=== PATIENT | female | born 1955 | race Caucasian/White ===

== ENCOUNTER 2020-10-07 09:55 | Outpatient (REF) | payer MEDICARE, MEDICAID, SELFPAY ==
[2020-10-12 23:02] LABS: HPV mRNA E6/E7 rflx Not Detected (Not Detected)
== END 2020-10-07 09:56 | disposition home or self-care (01) ==
LOC: HO.LAB 09:55
PROVIDERS: PCP Internal Medicine; Visit Provider Obstetrics & Gynecology
DX: Z01.419 Encounter for gynecological examination (general) (routine) without abnormal findings (principal)
CPT/HCPCS: 36415; 87624; 88141; 88142

== ENCOUNTER 2020-12-13 11:48 | Outpatient (REF) | payer MEDICARE, MEDICAID, SELFPAY ==
--- NOTE | ~2020-12-13 | MM_ITS ---
EXAMINATION: BONE DENSITOMETRY CLINICAL INDICATION: Asymptomatic menopausal state. COMPARISON: This is the patient's baseline examination. TECHNIQUE: Using a [employer] DXA System (software version: 13.1) manufactured by [employer], dual-energy x-ray absorptiometry was performed of the lumbar spine and left hip. The images are of good technical quality. Summary results are attached. FINDINGS: AP SPINE L1-L2 (excluding L3 and L4): The data of L1-L4 has been changed to exclude the L3 and L4 vertebral bodies, because degenerative sclerosis at these levels may cause overestimation of lumbar spine density. BMD 1.186 g/cm2, Z-score 2.1, T-score 0.2, normal. LEFT FEMUR, NECK: BMD 0.670 g/cm2, Z-score -0.9, T-score -2.6, osteoporosis. LEFT FEMUR, TOTAL: BMD 0.705 g/cm2, Z-score -0.9, T-score -2.4, osteopenia. IDENTIFIED RISK FACTORS: Renal disease. Height loss. Anticonvulsant. Menopause. HISTORY OF FRACTURE: None listed. MEDICATIONS: Calcium supplement and/or multivitamin. Vitamin D. MM/XR DEXA axial skeleton IMPRESSION: 1. DIAGNOSIS: Osteoporosis based on the lowest T-score value of -2.6 in the femoral neck applying World Health Organization criteria. 2. 10-YEAR FRACTURE RISK PREDICTION, FRAX: Major osteoporotic fracture (clinical spine, forearm, hip or shoulder) 7.7%. Hip fracture 1.9%. 3. Treatment Recommendations: NOF guidelines recommend consideration for treatment in postmenopausal women and men age 50 and older presenting with the following: -A hip or vertebral (clinical or morphometric) fracture. -T-score less than or equal to -2.5 at the femoral neck or spine after appropriate evaluation to exclude secondary causes. -Low bone mass at the hip or spine and a 10-year fracture probability by FRAX of greater than or equal to 3% for hip fracture or greater than or equal to 20% for major osteoporotic fracture based on the [place] adapted WHO algorithm. 4. Other Recommendations: All treatment decisions require clinical judgment and consideration of individual patient factors, including patient preferences, comorbidities, previous drug use, risk factors not captured in the FRAX model (e.g. frailty, falls, vitamin D deficiency, increased bone turnover, interval significant decline in bone density) and possible under or overestimation of fracture risk by FRAX. Additional medical evaluation for secondary cause of low bone mineral density may be appropriate. FUTURE SCAN RECOMMENDATION: People with diagnosed cases of osteoporosis or at high risk for fracture should have regular bone mineral density tests. For patients eligible for Medicare, routine testing is allowed once every 2 years. The testing frequency can be increased to one year for patients who have rapidly progressing disease, those who are receiving or discontinuing medical therapy to restore bone mass, or have additional risk factors.
--- NOTE | ~2020-12-13 | MM_ITS ---
EXAMINATION: MM SCREENING DIGITAL BREAST TOMOSYNTHESIS, BILATERAL CLINICAL INFORMATION: Screening. Asymptomatic. The lifetime risk of breast cancer based on the Tyrer-Cuzick Model is 3%. COMPARISON: Mammography: 11/11/2018, 10/24/2016, 10/03/2015 TECHNIQUE: Digital breast tomosynthesis is performed in both the craniocaudal and mediolateral oblique views along with computer-aided detection (CAD). Synthesized 2D images are generated from the tomosynthesis. FINDINGS: There are scattered areas of fibroglandular density (ACR BI-RADS breast composition Category b). There are no significant masses, abnormal calcifications, or other abnormalities. The axilla and skin contours are unremarkable. There are no significant changes from prior studies. MM/MM tomosynthesis screening BI IMPRESSION: No mammographic evidence of malignancy. ASSESSMENT: BI-RADS 1: Negative RECOMMENDATION: Routine annual mammography screening. This patient's information was entered into a reminder system with a target due date for their next mammogram.
== END 2020-12-13 11:49 | disposition home or self-care (01) ==
LOC: HO.MAMMO 11:48
PROVIDERS: Visit Provider Obstetrics & Gynecology
DX: Z12.31 Encounter for screening mammogram for malignant neoplasm of breast (principal); Z13.820 Encounter for screening for osteoporosis; M81.0 Age-related osteoporosis without current pathological fracture; Z78.0 Asymptomatic menopausal state; Z79.899 Other long term (current) drug therapy
CPT/HCPCS: 77063; 77067; 77080

== ENCOUNTER → 2020-12-22 11:06 | Outpatient (BNVA) | payer MEDICARE, MEDICAID, SELFPAY | PROVIDERS: PCP Internal Medicine; Visit Provider Obstetrics & Gynecology | DX: M81.0 Age-related osteoporosis without current pathological fracture (principal) | CPT/HCPCS: Q3014 ==

== ENCOUNTER 2021-03-16 10:16 | Outpatient (REF) | payer MEDICARE, MEDICAID, SELFPAY ==
[2021-03-16 10:58] LABS: MANUAL DIFF FLAG NO
[2021-03-16 11:06] LABS: Basophils Percent Auto 0.7 % (0-2); Eosinophils Absolute Auto 0.2 X10*3/uL (0.0-0.4); Eosinophils Percent Auto 3.3 % (0-4); Hematocrit 36.1 % (37-47); Hemoglobin 11.6 g/dl (12.0-16.0); Imm Gran Abs Auto 0.01 X10*3/uL (0.00-0.03); Imm Gran Pct Auto 0.2 % (0.0-0.4); Lymphocytes Absolute Auto 1.7 X10*3/uL (1.2-4.9); Lymphocytes Percent Auto 30.9 % (20-40); Mean Corpuscular HGB Conc 32.1 g/dl (31.0-35.0); Mean Corpuscular Hemoglobin 28.2 pg (27.0-33.0); Mean Corpuscular Volume 87.8 fL (80-98); Mean Platelet Volume 11.1 fL (9.4-12.3); Monocytes Absolute Auto 0.3 X10*3/uL (0.1-1.2); Monocytes Percent Auto 5.9 % (2-11); Neutrophils Absolute Auto 3.2 X10*3/uL (2.0-8.3); Platelet Count 184 X10*3/uL (160-400); Red Blood Count 4.11 X10*6/uL (4.20-5.50); Red Cell Distribution Width 14.1 % (11.0-16.0); White Blood Count 5.5 X10*3/uL (4.8-10.8)
[2021-03-16 11:38] LABS: Albumin Level 3.9 g/dL (3.5-5.0); Anion Gap 15 (12-20); Blood Urea Nitrogen 19 mg/dL (9-16); Calcium 9.5 mg/dL (8.4-10.2); Carbon Dioxide 23 mmol/L (22-29); Chloride 105 mmol/L (96-108); Estimated Glomerular Filt Rate 40; Magnesium 1.6 mg/dL (1.6-2.6); Phosphorus 4.4 mg/dL (2.7-4.5); Potassium 4.6 mmol/L (3.3-5.1); Sodium 138 mmol/L (135-145)
[2021-03-17 19:32] LABS: Calcium (PTHI) 9.5 mg/dL (8.6-10.4); PTHI 43 pg/mL (14-64)
== END 2021-03-16 10:17 | disposition home or self-care (01) ==
LOC: HO.LAB 10:16
PROVIDERS: Visit Provider Internal Medicine Nephrology
DX: E11.21 Type 2 diabetes mellitus with diabetic nephropathy (principal); E11.22 Type 2 diabetes mellitus with diabetic chronic kidney disease; N18.31 Chronic kidney disease, stage 3a; R80.1 Persistent proteinuria, unspecified
CPT/HCPCS: 36415; 80051; 82040; 82310; 82565; 83735; 83970; 84100; 84520; 85025

== ENCOUNTER 2021-03-28 11:15 | Outpatient (REF) | payer MEDICARE, MEDICAID, SELFPAY | END 2021-03-28 11:16 | disposition home or self-care (01) | LOC: HO.LAB 11:15 | PROVIDERS: Visit Provider Obstetrics & Gynecology | DX: R87.612 Low grade squamous intraepithelial lesion on cytologic smear of cervix (LGSIL) (principal) | CPT/HCPCS: 57456; 88305 ==

== ENCOUNTER → 2021-06-13 09:03 | Outpatient (BNVA) | payer MEDICARE, MEDICAID, SELFPAY | PROVIDERS: Visit Provider Obstetrics & Gynecology | DX: N87.0 Mild cervical dysplasia (principal) | CPT/HCPCS: 99212 ==

== ENCOUNTER 2022-03-01 09:09 | Outpatient (REF) | payer MEDICARE, MEDICAID, SELFPAY ==
[2022-03-01 09:40] LABS: MANUAL DIFF FLAG NO
[2022-03-01 10:39] LABS: Basophils Percent Auto 0.7 % (0-2); Eosinophils Absolute Auto 0.2 X10*3/uL (0.0-0.4); Eosinophils Percent Auto 2.5 % (0-4); Hematocrit 38.7 % (37.0-47.0); Hemoglobin 12.7 g/dl (12.0-16.0); Imm Gran Abs Auto 0.02 X10*3/uL (0.00-0.03); Imm Gran Pct Auto 0.3 % (0.0-0.4); Lymphocytes Absolute Auto 1.6 X10*3/uL (1.2-4.9); Lymphocytes Percent Auto 27.5 % (20-40); Mean Corpuscular HGB Conc 32.8 g/dl (31.0-35.0); Mean Corpuscular Hemoglobin 28.2 pg (27.0-33.0); Monocytes Absolute Auto 0.4 X10*3/uL (0.1-1.2); Monocytes Percent Auto 6.4 % (2-11); Neutrophils Absolute Auto 3.7 x10*3/uL (2.0-8.3); Neutrophils Percent Auto 62.6 % (45-73); Platelet Count 194 X10*3/uL (160-400); Red Cell Distribution Width 13.8 % (11.0-16.0)
[2022-03-01 10:52] LABS: Appearance Urine CLEAR; Color Urine STRAW; Glucose Urine UA >=1000 MG/DL (NEG); Leukocyte Esterase Urine NEG (NEG); Nitrite Urine NEG (NEG); Specific Gravity - Urine <= 1.005 (1.005-1.025); Urine Blood NEG (NEG); Urine Ketones NEG (NEG); Urine Protein NEG (NEG-TRACE)
[2022-03-01 10:59] LABS: Squamous Epithelial Cell Urine 1+ /LPF
[2022-03-01 11:00] LABS: RBC Urine 0 /HPF (0); WBC Urine 0-2 /HPF (0-4)
[2022-03-01 11:15] LABS: Creatinine Urine 32.63 mg/dL; Total Protein Urine Random < 7 mg/dL (<12)
[2022-03-01 11:33] LABS: Vitamin D 25-OH Total 32.5 ng/mL (>30)
[2022-03-01 12:13] LABS: Albumin Level 3.8 g/dL (3.5-5.0); Anion Gap 18 (12-20); Blood Urea Nitrogen 25 mg/dL (9-16); Calcium 9.5 mg/dL (8.4-10.2); Carbon Dioxide 25 mmol/L (22-29); Chloride 98 mmol/L (96-108); Estimated Glomerular Filt Rate 24; Magnesium 1.9 mg/dL (1.6-2.6); Phosphorus 5.5 mg/dL (2.7-4.5); Potassium 5.3 mmol/L (3.3-5.1); Sodium 136 mmol/L (135-145)
[2022-03-02 12:27] LABS: Calcium (PTHI) 9.8 mg/dL (8.6-10.4); PTHI 107 pg/mL (16-77)
== END 2022-03-01 09:10 | disposition home or self-care (01) ==
LOC: HO.LAB 09:09
PROVIDERS: Visit Provider Internal Medicine Nephrology
DX: I12.9 Hypertensive chronic kidney disease with stage 1 through stage 4 chronic kidney disease, or unspecified chronic kidney disease (principal); N18.32 Chronic kidney disease, stage 3b; E11.22 Type 2 diabetes mellitus with diabetic chronic kidney disease; E11.21 Type 2 diabetes mellitus with diabetic nephropathy; R80.1 Persistent proteinuria, unspecified
CPT/HCPCS: 36415; 80051; 81001; 82040; 82043; 82306; 82310; 82565; 83735; 83970; 84100; 84156; 84520; 85025; 87086

== ENCOUNTER 2022-11-01 13:30 | Outpatient (REF) | payer MEDICARE, MEDICAID, SELFPAY ==
[2022-11-05 22:44] LABS: HPV mRNA E6/E7 rflx Not Detected (Not Detected)
== END 2022-11-01 13:31 | disposition home or self-care (01) ==
LOC: HO.LNP 13:30
PROVIDERS: PCP Internal Medicine; Visit Provider Obstetrics & Gynecology
DX: Z01.419 Encounter for gynecological examination (general) (routine) without abnormal findings (principal); N87.0 Mild cervical dysplasia; Z11.51 Encounter for screening for human papillomavirus (HPV)
CPT/HCPCS: 87624; 88142

== ENCOUNTER 2022-12-18 10:59 | Outpatient (REF) | payer MEDICARE, MEDICAID, SELFPAY ==
--- NOTE | ~2022-12-18 | MM_ITS ---
EXAMINATION: BONE DENSITOMETRY CLINICAL INDICATION: Asymptomatic menopausal state. COMPARISON: Baseline BD dated 12/13/2020. TECHNIQUE: Using a [employer] DXA System (software version: 13.1) manufactured by [employer], dual-energy x-ray absorptiometry was performed of the lumbar spine and left hip. The images are of good technical quality. Summary results are attached. FINDINGS: AP SPINE L1-L2 (excluding L3 and L4): The data of L1-L4 has been changed to exclude the L3 and L4 vertebral bodies, because degenerative changes at these levels may cause overestimation of lumbar spine density. Current: BMD 1.164 g/cm2, Z-score 1.9, T-score 0.0, normal, 1.9% decrease from baseline (<5% change is not significant). Baseline: BMD 1.186 g/cm2. LEFT FEMUR, NECK: Current: BMD 0.610 g/cm2, Z-score -1.3, T-score -3.1, osteoporosis. Baseline: BMD 0.670 g/cm2. LEFT FEMUR, TOTAL: Current: BMD 0.710 g/cm2, Z-score -0.8, T-score -2.4, osteopenia, 0.7% increase from baseline (<5% change is not significant). Baseline: BMD 0.705 g/cm2. IDENTIFIED RISK FACTORS: Rheumatoid arthritis. Recurrent falls. Secondary osteoporosis (type 1 diabetes). Menopause. HISTORY OF FRACTURE: None listed. MEDICATIONS: Calcium supplement and/or multivitamin. Vitamin D. MM/XR DEXA axial skeleton IMPRESSION: 1. DIAGNOSIS: Osteoporosis based on the lowest T-score value of -3.1 in the femoral neck applying World Health Organization criteria. 2. 10-YEAR FRACTURE RISK PREDICTION, FRAX: According to the guidelines, FRAX calculation should only be performed on patients in the osteopenia bone density category.?Therefore, FRAX was not performed on this patient.? 3. Treatment Recommendations: NOF guidelines recommend consideration for treatment in postmenopausal women and men age 50 and older presenting with the following: -A hip or vertebral (clinical or morphometric) fracture. -T-score less than or equal to -2.5 at the femoral neck or spine after appropriate evaluation to exclude secondary causes. -Low bone mass at the hip or spine and a 10-year fracture probability by FRAX of greater than or equal to 3% for hip fracture or greater than or equal to 20% for major osteoporotic fracture based on the [place] adapted WHO algorithm. 4. Other Recommendations: All treatment decisions require clinical judgment and consideration of individual patient factors, including patient preferences, comorbidities, previous drug use, risk factors not captured in the FRAX model (e.g. frailty, falls, vitamin D deficiency, increased bone turnover, interval significant decline in bone density) and possible under or overestimation of fracture risk by FRAX. Additional medical evaluation for secondary cause of low bone mineral density may be appropriate. FUTURE SCAN RECOMMENDATION: People with diagnosed cases of osteoporosis or at high risk for fracture should have regular bone mineral density tests. For patients eligible for Medicare, routine testing is allowed once every 2 years. The testing frequency can be increased to one year for patients who have rapidly progressing disease, those who are receiving or discontinuing medical therapy to restore bone mass, or have additional risk factors.
== END 2022-12-18 11:00 | disposition home or self-care (01) ==
LOC: HO.MAMMO 10:59
PROVIDERS: PCP Internal Medicine; Visit Provider Obstetrics & Gynecology
DX: Z13.820 Encounter for screening for osteoporosis (principal); Z78.0 Asymptomatic menopausal state
CPT/HCPCS: 77080

== ENCOUNTER 2022-12-20 11:00 | Outpatient (REF) | payer MEDICARE, MEDICAID, SELFPAY | END 2022-12-20 11:01 | disposition home or self-care (01) | LOC: HO.LNP 11:00 | PROVIDERS: PCP Internal Medicine; Visit Provider Obstetrics & Gynecology | DX: R87.612 Low grade squamous intraepithelial lesion on cytologic smear of cervix (LGSIL) (principal); M81.0 Age-related osteoporosis without current pathological fracture | CPT/HCPCS: 57454; 88305; 99212 ==

== ENCOUNTER → 2023-01-17 09:28 | Outpatient (BNVA) | payer MEDICARE, MEDICAID, SELFPAY | PROVIDERS: PCP Internal Medicine; Visit Provider Obstetrics & Gynecology | DX: M81.0 Age-related osteoporosis without current pathological fracture (principal); N87.0 Mild cervical dysplasia | CPT/HCPCS: 99212 ==

== ENCOUNTER 2023-02-15 06:35 | Day surgery (SDC) | payer MEDICARE, MEDICAID, SELFPAY ==
[2023-01-30 11:16] VITALS: BMI 22.5
--- NOTE | 2023-02-14 08:59 | P.CONAN_ITS ---
Documented by User: Oanh Forman NP 02/14/23 08:59 HPI - Anesthesia Eval Consult details Narrative: 67yo F for LEEP,poss loop electric excision,poss loop electrical,cone and post endocervical curettage PMFSH Active Problems Active Problems: All Active Problems (Updated 01/17/23 @ 09:35 by Feroz Singh MD) LGSIL on Pap smear of cervix (Acute) Dysplasia of cervix, low grade (FILOMENA 1) (Acute) LGSIL (low grade squamous intraepithelial dysplasia) (Acute) Osteoporosis (Acute) Menopause (Acute) Well woman exam (Acute) Past Medical History Medical History Asthma Diabetes Dysplasia of cervix, low grade (FILOMENA 1) Hypertension Surgical History Surgical History Tubal ligation status Social History Social History Alcohol intake: former Patient Tobacco Use Status: Former Tobacco user Are you DNR?: No Advance Directives: No Advance Directives Information Provided: Yes Meds Allergies Allergy/AdvReac Type Severity Reaction Status Date / Time acetaminophen [From Percocet] Allergy Unknown Unknown Verified 01/17/23 09:34 ibuprofen [From Motrin] Allergy Unknown Nausea and Verified 01/17/23 09:34 Vomiting, Shaking, Anaphylaxis oxycodone [From Percocet] Allergy Unknown Unknown Verified 01/17/23 09:34 Home Medications Medication Instructions Recorded Confirmed Last Taken Type albuterol sulfate 90 mcg/actuation inhalation 10/07/20 02/07/23 History aerosol inhaler aspirin 81 mg tablet,delayed 81 mg PO DAILY 10/07/20 02/13/23 History release atorvastatin 40 mg tablet mg PO 10/07/20 02/14/23 History blood pressure test kit-large #1 ea 10/07/20 Unknown History dulaglutide 0.75 mg/0.5 mL 0.75 mg subcut QWEEK 10/07/20 02/11/23 History subcutaneous pen injector losartan 100 mg tablet 100 mg PO DAILY 10/07/20 02/14/23 History gabapentin 600 mg tablet 600 mg PO BEDTIME 11/01/22 02/14/23 History insulin lispro 100 unit/mL subcut 11/01/22 02/14/23 History subcutaneous pen (Humalog KwikPen (U-100) Insulin) pen needle, diabetic 32 gauge x #50 ea 11/01/22 Unknown History (BD Jaycee 2nd Gen Pen Needle) Exam Exam Date and Time: February 14, 2023 0859 Height,Weight and Vital Signs: Height 5 ft 2 in Weight 55.792 kg Assessment and Plan Assessment Anesthesia Assessment: Chart Reviewed Documented by User: Shiloh Salinas MD 02/15/23 07:46 [facility] Past Medical History Medical History Asthma Diabetes Dysplasia of cervix, low grade (FILOMENA 1) Hypertension Surgical History Surgical History Tubal ligation status History of Problems with Anesthesia: No Social History Social History Alcohol intake: former Patient Tobacco Use Status: Former Tobacco user Are you DNR?: No Advance Directives: No Advance Directives Information Provided: Yes Meds Allergies Allergy/AdvReac Type Severity Reaction Status Date / Time acetaminophen [From Percocet] Allergy Unknown Unknown Verified 01/17/23 09:34 ibuprofen [From Motrin] Allergy Unknown Nausea and Verified 01/17/23 09:34 Vomiting, Shaking, Anaphylaxis oxycodone [From Percocet] Allergy Unknown Unknown Verified 01/17/23 09:34 Home Medications Medication Instructions Recorded Confirmed Last Taken Type albuterol sulfate 90 mcg/actuation inhalation 10/07/20 02/07/23 History aerosol inhaler aspirin 81 mg tablet,delayed 81 mg PO DAILY 10/07/20 02/13/23 History release atorvastatin 40 mg tablet mg PO 10/07/20 02/14/23 History blood pressure test kit-large #1 ea 10/07/20 Unknown History dulaglutide 0.75 mg/0.5 mL 0.75 mg subcut QWEEK 10/07/20 02/11/23 History subcutaneous pen injector losartan 100 mg tablet 100 mg PO DAILY 10/07/20 02/14/23 History gabapentin 600 mg tablet 600 mg PO BEDTIME 11/01/22 02/14/23 History insulin lispro 100 unit/mL subcut 11/01/22 02/14/23 History subcutaneous pen (Humalog KwikPen (U-100) Insulin) pen needle, diabetic 32 gauge x #50 ea 11/01/22 Unknown History (BD Jaycee 2nd Gen Pen Needle) Exam Airway Mallampati Class: II TM Dist: >3cm Neck ROM: Full Denture: Upper Loose/Missing/Broken Teeth: Yes, Upper and Lower Heart: RRR Lungs: CTA Assessment and Plan Assessment Anesthesia Assessment: Anesthesia Plan Discussed Final Anesthetic Review History of Problems with Anesthesia: No NPO: Yes ASA Class: II and III Final Preanesthetic Review: Meds/Allgs Chart Reviewed, Consent Obtained/Reviewed and Anes Risks/Benef Reviewed Patient Risk: Intermediate Procedure Risk: Low Anesthetic Plan Anesthetic Plan: GA Disposition: Standard PACU
[2023-02-15 06:40] VITALS: BP 125/81; PULSE 78; RESP 20; TEMP 36.3; O2SAT 98
[2023-02-15 06:50] LABS: Glucose, Whole Blood 199 mg/dL (60-115)
[2023-02-15] MEDS: Lactated Ringers 1,000 ML 100 ML IVCONT (07:06)
--- NOTE | 2023-02-15 08:12 | MHC.SHP ---
Pre-Procedural Eval Section A Date of Service: 02/15/23 The patient is an INPATIENT: No Changes since office visit: No Cold of Flu in the past 2 weeks, No New Medical Problems, No Changes in Medication and No Patient answered all questions The History & Physical has been completed within 30 days and I have reviewed it.: Yes Section B Chief Complaint: Mild cervical dysplasia Allergies: Allergies Allergy/AdvReac Type Severity Reaction Status Date / Time acetaminophen [From Percocet] Allergy Unknown Unknown Verified 01/17/23 09:34 ibuprofen [From Motrin] Allergy Unknown Nausea and Verified 01/17/23 09:34 Vomiting, Shaking, Anaphylaxis oxycodone [From Percocet] Allergy Unknown Unknown Verified 01/17/23 09:34 Plan Diagnosis/Plan: Unchanged I have reviewed the history and physical and performed a pertinent physical examination on my patient. No changes have occurred unless specified. Time Spent With Patient Time: Total time managing care of this patient today ____ minutes.
--- NOTE | 2023-02-15 08:52 | PM.OP ---
Brief Operative Note Date of Service: 02/15/23 Pre-op diagnosis: Persistent FILOMENA 1 Post-op diagnosis: same Procedure: LEEP CONE with post CONE ECC Surgeon: Feroz Singh MD Anesthesia: GLMA and other (Paracervical block) Was an Machinist Instructor used for this Procedure?: No Estimated blood loss (mL): 0 Pathology: other (Anterior cervical lip, posterior cervical lip, and the cervix, Post cone ECC) Condition: stable Disposition: other (Home)
--- NOTE | 2023-02-15 08:53 | P.OP_ITS ---
Operative Note Operative Note Date of Service: 02/15/23 Narrative: Pre op diagnosis: Persistent FILOMENA 1 Operation: Colposcopy, Loop electrical excision procedure cone, post cone ECC Postop diagnosis: the same Quantitative blood loss: 10 cc Surgeon: Feroz Singh MD, FACOG Cover Inspector: None Pathology: Anterior cervical lip, posterior cervical lip, endocervical, post cone endo cervical curettage Complications: none Anesthesia: GLMA and Para cervical block Procedure: The patient was put in a dorsal lithotomy position, scrubbed and draped in the usual sterile fashion. A speculum was inserted inside the patient's vagina. The cervix is assessed using the colposcope with acetic acid , the lesions were seen, and at least 1 cm of the squamocolumnar junction was observed. 20 x 5 mm size loop was selected based upon the diameter of the lesion. Lugol solution was used to outline the lesions and area of the transformation zone order to be removed 10 cc of xylocaine with epinephrine were injected submucosally into the surface of the cervix (ectocervix) at the 3, 6, 9, and 12 o'clock positions. The electrosurgical generator is set at 40 reed on blend 1. The loop is carefully passed simultaneously around the anterior follow-up by the posterior cervical lip under the transformation zone, in order to ensure excising it making sure the lesion is at least 5 mm far from the specimen margins, then additional tissue was excised from the endocervical canal using a smaller-diameter loop. An endo cervical curettage is performed following completion of excision, and hemostasis is obtained with a Ball electrode or regular tip cautery. At the end, Monsel's solution was applied to the cone bed. The patient tolerated the procedure well and, all instruments were taken out of the patient vaginal cavity, and the patient was transferred to the PACU in stable condition.
[2023-02-15 09:05] VITALS: BP 90/55; PULSE 80; RESP 20; TEMP 36.7; O2SAT 100
[2023-02-15 09:10] VITALS: BP 105/55; PULSE 89; RESP 16; O2SAT 97
[2023-02-15 09:15] VITALS: BP 98/56; PULSE 85; RESP 16; O2SAT 97
[2023-02-15 09:20] VITALS: BP 91/40; PULSE 87; RESP 17; O2SAT 97
[2023-02-15 09:42] VITALS: BP 126/66; PULSE 80; RESP 18; TEMP 36.8; O2SAT 95
== END 2023-02-15 10:10 | disposition home or self-care (01) ==
PROVIDERS: PCP Internal Medicine; Visit Provider Obstetrics & Gynecology
PROC: 0UBC7ZZ Excision of Cervix, Via Natural or Artificial Opening (ICD-10-PCS; CPT 57522; principal; 2023-02-15 08:30)
DX: N87.0 Mild cervical dysplasia (principal); I10 Essential (primary) hypertension; E11.9 Type 2 diabetes mellitus without complications; M81.0 Age-related osteoporosis without current pathological fracture; J45.909 Unspecified asthma, uncomplicated; Z79.4 Long term (current) use of insulin; Z79.82 Long term (current) use of aspirin; Z79.899 Other long term (current) drug therapy; Z88.8 Allergy status to other drugs, medicaments and biological substances; Z98.51 Tubal ligation status; Z87.891 Personal history of nicotine dependence
CPT/HCPCS: 57461; 82947; 88305; 88307; J2405; J3010

== ENCOUNTER → 2023-02-15 06:35 | Outpatient (BNV) | payer MEDICARE, MEDICAID, SELFPAY | PROVIDERS: PCP Internal Medicine; Visit Provider Obstetrics & Gynecology | DX: N87.0 Mild cervical dysplasia (principal) | CPT/HCPCS: 57461 ==

== ENCOUNTER 2023-03-07 10:02 | Outpatient (AMB) | payer MEDICARE, MEDICAID, SELFPAY ==
[2023-03-07 10:08] VITALS: BP 100/68; BMI 22.5
--- NOTE | 2023-03-07 10:08 | MHC.OFFVIS ---
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 The patient has no complaints. The pathology showed the following: A. Cervix, anterior cervical lip, conization: Squamous and endocervical glandular mucosa with focal inflammation and reactive changes, and focal biopsy site changes; negative for dysplasia. B. Cervix, posterior cervical lip, conization: Squamous mucosa and focal endocervical glandular epithelium with focal inflammation and focal biopsy site changes; negative for dysplasia. C. Endocervix, conization: Squamous and endocervical glandular mucosa with inflammation, reactive changes, and biopsy site changes; negative for dysplasia. D. Endocervix, post cone curettage: Endocervical glandular mucosa and scant squamous epithelium; negative for dysplasia. [facility] Medical History Asthma Diabetes Dysplasia of cervix, low grade (FILOMENA 1) Hypertension Surgical History Tubal ligation status Social History Alcohol intake: former Patient Tobacco Use Status: Former Tobacco user Female Reproductive History Menstrual Age of Menarche: 11 control method: permanent sterilization Date of last pap smear: 11/02/22 (CIN1) Review of Systems Const All systems reviewed & are unremarkable except as noted in HPI and below Reports as per HPI and Reports no additional complaints GI Reports no additional complaints Reports no additional complaints Physical Exam Vital Signs: Last Vital Signs BP 100/68 03/07/23 10:08 BMI result Body Mass Index 22.5 Assessment & Plan Assessment & Plan (1) Dysplasia of cervix, low grade (FILOMENA 1): Comment: Since 2019 Status post LEEP cone with post cone ECC was negative pathology Code(s): N87.0 - Mild cervical dysplasia Plan: Discussed with the patient the procedure and the pathology of the LEEP, with its sensitivity, specificity, post positive false-negative rate. Instructions given to patient to schedule co testing in 12 months check the results and treat accordingly. All questions answered patient verbalized understanding. Coding Level of Care Code Est Pt Level 3 (75080) Diagnoses Dysplasia of cervix, low grade (FILOMENA 1) N87.0
== END 2023-03-07 10:26 | disposition home or self-care (01) ==
LOC: HO.HWS 10:02
PROVIDERS: PCP Internal Medicine; Visit Provider Obstetrics & Gynecology
DX: N87.0 Mild cervical dysplasia (principal)
CPT/HCPCS: 99213

== ENCOUNTER → 2023-03-07 10:02 | Outpatient (BNVA) | payer MEDICARE, MEDICAID, SELFPAY | PROVIDERS: PCP Internal Medicine; Visit Provider Obstetrics & Gynecology | DX: N87.0 Mild cervical dysplasia (principal) | CPT/HCPCS: 99212 ==

== ENCOUNTER 2023-09-17 11:18 | Outpatient (REF) | payer MEDICARE, MEDICAID, SELFPAY ==
[2023-09-17 11:38] LABS: MANUAL DIFF FLAG NO
[2023-09-17 12:10] LABS: Basophils Absolute Auto 0.1 X10*3/uL (0.0-0.2); Eosinophils Absolute Auto 0.3 X10*3/uL (0.0-0.4); Eosinophils Percent Auto 4.6 % (0-4); Hematocrit 38.4 % (37.0-47.0); Hemoglobin 12.6 g/dl (12.0-16.0); Imm Gran Abs Auto 0.01 X10*3/uL (0.00-0.03); Imm Gran Pct Auto 0.2 % (0.0-0.4); Lymphocytes Absolute Auto 1.7 X10*3/uL (1.2-4.9); Lymphocytes Percent Auto 27.6 % (20-40); Mean Corpuscular HGB Conc 32.8 g/dl (31.0-35.0); Mean Corpuscular Hemoglobin 29.2 pg (27.0-33.0); Mean Corpuscular Volume 88.9 fL (80.0-98.0); Mean Platelet Volume 10.7 fL (9.4-12.3); Monocytes Absolute Auto 0.3 X10*3/uL (0.1-1.2); Monocytes Percent Auto 5.6 % (2-11); Neutrophils Absolute Auto 3.7 x10*3/uL (2.0-8.3); Platelet Count 149 X10*3/uL (160-400); Red Blood Count 4.32 X10*6/uL (4.20-5.50); Red Cell Distribution Width 14.7 % (11.0-16.0); White Blood Count 6.1 X10*3/uL (4.8-10.8)
[2023-09-17 12:56] LABS: Albumin Level 3.7 g/dL (3.5-5.0); Anion Gap 10 (12-20); Blood Urea Nitrogen 26 mg/dL (9-16); Calcium 9.6 mg/dL (8.4-10.2); Carbon Dioxide 27 mmol/L (22-29); Chloride 104 mmol/L (96-108); Estimated Glomerular Filt Rate 29; Magnesium 1.9 mg/dL (1.6-2.6); Phosphorus 4.5 mg/dL (2.7-4.5); Potassium 4.1 mmol/L (3.3-5.1); Sodium 137 mmol/L (135-145)
[2023-09-17 13:02] LABS: Vitamin D 25-OH Total 26.8 ng/mL (>30)
[2023-09-17 14:08] LABS: Appearance Urine Cloudy; Color Urine Yellow; Glucose Urine UA >=1000 mg/dL (Negative); Leukocyte Esterase Urine Moderate (2+) (Negative); Nitrite Urine Positive (Negative); PH 6.5 (5.0-9.0); Specific Gravity - Urine 1.015 (1.005-1.025); UMIC TRIGGER UA YES; Urine Blood Trace (Negative); Urine Ketones Negative (Negative); Urine Protein Negative (Neg-Trace)
[2023-09-17 14:17] LABS: Bacteria Urine 4+ (None Seen); Hyaline Casts Urine 0-2 /LPF (0-2); RBC Urine 0-2 /HPF (0-2); Squamous Epithelial Cell Urine >20 /HPF (0-2); WBC Urine 21-50 /HPF (0-5)
[2023-09-17 15:00] LABS: Microalbum/Creatinine Ratio Ur 23.8 ug/mg cr (<30); Total Protein Urine Random < 7 mg/dL (<12)
[2023-09-18 05:43] LABS: Parathyroid Hormone Intact 203.7 pg/mL (8.7-77.1)
[2023-09-21 19:24] LABS: Calcitonin <2 pg/mL (<=5)
== END 2023-09-17 11:19 | disposition home or self-care (01) ==
LOC: HO.LAB 11:18
PROVIDERS: PCP Internal Medicine; Visit Provider Internal Medicine Nephrology
DX: E11.21 Type 2 diabetes mellitus with diabetic nephropathy (principal); E11.22 Type 2 diabetes mellitus with diabetic chronic kidney disease; N18.32 Chronic kidney disease, stage 3b; R80.1 Persistent proteinuria, unspecified
CPT/HCPCS: 36415; 80051; 81001; 81003; 82040; 82043; 82306; 82308; 82310; 82565; 82570; 83735; 83970; 84100; 84156; 84520; 85025; 87086

== ENCOUNTER 2023-11-07 09:23 | Outpatient (REF) | payer MEDICARE, MEDICAID, SELFPAY ==
[2023-11-14 02:24] LABS: HPV mRNA E6/E7 rflx Not Detected (Not Detected)
== END 2023-11-07 09:24 | disposition home or self-care (01) ==
LOC: HO.LNP 09:23
PROVIDERS: Visit Provider Obstetrics & Gynecology
DX: Z01.419 Encounter for gynecological examination (general) (routine) without abnormal findings (principal); Z11.51 Encounter for screening for human papillomavirus (HPV); N87.0 Mild cervical dysplasia
CPT/HCPCS: 87624; 88142; 99397

== ENCOUNTER 2023-11-07 09:23 | Outpatient (AMB) | payer MEDICARE, MEDICAID, SELFPAY ==
--- NOTE | 2023-11-07 09:26 | MHC.OFFVIS ---
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 No complaints. Last Pap/HPV was FILOMENA 1 in 11/11, status post LEEP in 02/10 Last Mammogram was a year ago at [place] according to patient was negative Last Colonoscopy was a year ago at [place], the recommendation was to repeat in 5 years, according to the patient Last DEXA scan was a year ago T-score was-3.1, the patient was started on alendronate [facility] Medical History Dysplasia of cervix, low grade (FILOMENA 1) Asthma Hypertension Diabetes Surgical History Tubal ligation status Social History Alcohol intake: former Patient Tobacco Use Status: Former Tobacco user Female Reproductive History Menstrual Age of Menarche: 11 Menopause type: natural Total pregnancies: 3 Full term: 3 Number of Living Children: 3 Date of last pap smear: 11/02/22 Date of Mammogram: 12/13/20 Review of Systems Const All systems reviewed & are unremarkable except as noted in HPI and below Card Reports as per HPI Resp Reports as per HPI GI Reports as per HPI and Reports no additional complaints Reports as per HPI Physical Exam Vital Signs: Last Vital Signs BP 110/66 11/07/23 09:31 BMI result Body Mass Index 28.2 Const General: cooperative, healthy appearing and comfortable Chest Chest palpation & inspection: normal inspection of the chest and normal palpation of entire chest wall Breast/axilla inspection: normal inspection of the breasts and normal inspection of the axillae Breast/axilla palpation: normal palpation of the breasts, normal palpation of the axillae and no axillary lymphadenopathy Resp Effort & Inspection: normal respiratory effort Auscultation: clear to auscultation bilaterally Percussion: percussion normal Cardio Palpation: normal PMI Rate: regular rate Rhythm: regular rhythm Heart sounds: no murmurs and no rubs Peripheral pulses: Peripheral pulses 2+ throughout GI Inspection: Yes normal to inspection Palpation (GI): Soft to palpation, nontender, no guarding, not rigid and No hepatosplenomegaly present Percussion: Yes normal to percussion Auscultation: normal bowel sounds Rectal Exam - Female: deferred General: Yes bladder normal to palpation External Female Exam: No lesion Speculum Exam - Vagina: normal appearance of the vagina, normal palpation, normal vaginal discharge and not erythematous Speculum Exam - Cervix: normal appearance of the cervix and normal palpation Bimanual exam- vagina & uterus: normal bimanual exam, normal palpation, uterine size normal, bladder normal to palpation, consistency normal and normal palpation Bimanual Exam- Adnexa, other: normal adnexae, no masses and no tenderness Assessment & Plan Assessment & Plan (1) Well woman exam: Comment: FILOMENA 1 since 2019 status post LEEP in 2022 Code(s): Z01.419 - Encounter for gynecological examination (general) (routine) without abnormal findings Plan: Co testing done Counseled the patient about the recommended dietary allowance of 1200 mg of Calcium & 800 IU of vitamin D. Next screening Mammogram scheduled in few weeks at [facility] according to the patient. alendronate 70 mg p.o. q.week refilled The patient was instructed to perform monthly self-breast exams and to schedule a 2 week DEXA scan follow-up appointment and an annual exam in a year; All questions answered and the patient verbalized understanding. Orders: Orders Pap Smear Today N87.0 - Mild cervical dysplasia Medications: Refilled alendronate 70 mg PO QWEEK 12 tabs 3RF Coding Level of Care Code Est Pt Prev Care >65y(10410) Diagnoses Well woman exam Z01.419
[2023-11-07 09:31] VITALS: BP 110/66; BMI 28.2
== END 2023-11-07 10:26 | disposition home or self-care (01) ==
PROVIDERS: Visit Provider Obstetrics & Gynecology
DX: Z01.419 Encounter for gynecological examination (general) (routine) without abnormal findings (principal)
CPT/HCPCS: 99397

== ENCOUNTER 2023-12-31 11:48 | Outpatient (AMB) | payer MEDICARE, MEDICAID, SELFPAY ==
--- NOTE | 2023-12-31 12:22 | A.OFFVIS_ITS ---
Vital Signs 12/31/23 12:23 Height 5 ft 2 in Weight 154 lb BMI 28.2 BP 100/68 Intake Visit Reasons: Colposcopy Geologist Required: No Information Interpreted: non-clinical & clinical Sports Information Director: Sports Information Director Present (Aidyn) Allergies acetaminophen [From Percocet] Allergy (Unknown, Verified 12/31/23 12:24) Unknown ibuprofen [From Motrin] Allergy (Unknown, Verified 12/31/23 12:24) Nausea and Vomiting, Shaking, Anaphylaxis oxycodone [From Percocet] Allergy (Unknown, Verified 12/31/23 12:24) Unknown Is last menstrual period known: No Post menopausal: Yes Patient : No HPI Comments Details: Presenting for colposcopy for Pap smear showing LGSIL HPV negative [facility] Medical History Dysplasia of cervix, low grade (FILOMENA 1) Asthma Hypertension Diabetes Surgical History Tubal ligation status Social History Alcohol intake: former Patient Tobacco Use Status: Former Tobacco user Patient : No Female Reproductive History Menstrual Age of Menarche: 11 control method: permanent sterilization Review of Systems Const All systems reviewed & are unremarkable except as noted in HPI and below Reports as per HPI and Reports no additional complaints GI Reports no additional complaints Reports no additional complaints Physical Exam Vital Signs: Last Vital Signs BP 100/68 12/31/23 12:23 BMI result Body Mass Index 28.2 Office Procedures Colposcopy Colposcopy: Pre-Procedure Counseling: Before beginning the procedure, I conducted comprehensive counseling with the patient. We thoroughly discussed the procedure itself, including its details, alternatives, and all associated risks. This included but not limited to the following complications such as bleeding, infection, and injury to the vagina, bladder, and vessels, as well as the potential need for transfusion with all its associated risks. Subsequently, the patient sign the consent. Pap smear result: LSIL. Procedure: During the procedure, the following steps were performed: A speculum was inserted, and acetic acid was applied. Colposcopy was conducted, allowing visualization of the transformation zone. Acetowhite lesions were identified at the 7+11 o'clock position. Cervical biopsies were obtained from the 7+11 o'clock position, followed by an endocervical curettage (ECC). Vaginoscopy of the upper vagina revealed no evidence of aceto-white lesions. Hemostasis was achieved using Monsel solution, and the patient tolerated the procedure well. Post-Procedure Instructions: The patient was advised to promptly contact the office or the after hours answering service or go to the emergency room if experiencing a temperature exceeding 100.4?F, abdominal pain, nausea/vomiting, or bleeding. Additionally, the patient was instructed to abstain from vaginal intercourse and bathtub use. The patient confirmed understanding of these instructions. Discharge Instructions: The patient was instructed to schedule a follow-up appointment in 2 weeks for further evaluation and management. Please note that this note was generated using a voice recognition program, and errors may have occurred during woods boss. [id number] of cervix including upper vagina with biopsy and ECC Procedure code (CPT) selection complete Assessment & Plan Assessment & Plan (1) LGSIL on Pap smear of cervix: Code(s): R87.612 - Low grade squamous intraepithelial lesion on cytologic smear of cervix (LGSIL) Category: Medical Plan: Discussed with the patient the result of her abnormal pap, its significance, risk of progression, persistence, and regression. the false positive/negative rate of a Pap smear as a screening test in detecting cervical cancer and the indication for a diagnostic test -colposcopy, biopsy, endocervical curettage. The patient verbalized understanding and agreed with the plan, all questions answered. Colposcopy done, see procedure note Orders: Orders AMB Colposcopy Today R87.612 - Low grade squamous intraepithelial lesion on cytologic smear of cervix (LGSIL) Coding Level of Care Code Procedure Only Diagnoses LGSIL on Pap smear of cervix R87.612 CPT Codes Colposcopy - CPT: 61995-Uwtgsewry of cervix including upper vagina with biopsy and ECC ([id number])
[2023-12-31 12:23] VITALS: BP 100/68; BMI 28.2
== END 2023-12-31 12:49 | disposition home or self-care (01) ==
PROVIDERS: PCP Internal Medicine; Visit Provider Obstetrics & Gynecology
DX: R87.612 Low grade squamous intraepithelial lesion on cytologic smear of cervix (LGSIL) (principal)
CPT/HCPCS: 57454

== ENCOUNTER 2023-12-31 11:48 | Outpatient (REF) | payer MEDICARE, SELFPAY | END 2023-12-31 11:49 | disposition home or self-care (01) | LOC: HO.LNP 11:48 | PROVIDERS: PCP Internal Medicine; Visit Provider Obstetrics & Gynecology | DX: R87.612 Low grade squamous intraepithelial lesion on cytologic smear of cervix (LGSIL) (principal) | CPT/HCPCS: 57454; 88305 ==

== ENCOUNTER 2024-02-18 11:36 | Outpatient (AMB) | payer MEDICARE, MEDICAID, SELFPAY ==
[2024-02-18 11:38] VITALS: BMI 27.8
--- NOTE | 2024-02-18 11:38 | A.OFFVIS_ITS ---
Vital Signs 02/18/24 11:38 Height 5 ft 2 in Weight 152 lb 1.903 oz BMI 27.8 Intake Visit Reasons: Colpo follow up Cmo & President Required: No Information Interpreted: non-clinical & clinical Accompanied by: Family/Other Allergies acetaminophen [From Percocet] Allergy (Unknown, Verified 02/18/24 11:41) Unknown ibuprofen [From Motrin] Allergy (Unknown, Verified 02/18/24 11:41) Nausea and Vomiting, Shaking, Anaphylaxis oxycodone [From Percocet] Allergy (Unknown, Verified 02/18/24 11:41) Unknown HPI Comments Details: Presenting post colpo for follow-up. The patient is doing well with no complaints. The pathology showed the following: A. Endocervix, curettage: Squamous epithelium; negative for dysplasia; no endocervical glandular component present. B. Cervix, 7:00, biopsy: Squamous mucosa with inflammation; negative for dysplasia; no endocervical glandular component present. C. Cervix, 11:00, biopsy: Squamous mucosa; negative for dysplasia; no endocervical glandular component present [facility] Medical History (Updated 02/18/24 @ 11:49 by Feroz Singh MD) Dysplasia of cervix, low grade (FILOMENA 1) Asthma Hypertension Diabetes Surgical History Tubal ligation status Social History Alcohol intake: former Patient Tobacco Use Status: Former Tobacco user Female Reproductive History Menstrual Age of Menarche: 11 Review of Systems Const All systems reviewed & are unremarkable except as noted in HPI and below Reports as per HPI and Reports no additional complaints GI Reports no additional complaints Reports no additional complaints Physical Exam Vital Signs: BMI result Body Mass Index 27.8 Assessment & Plan Assessment & Plan (1) LGSIL on Pap smear of cervix: Code(s): R87.612 - Low grade squamous intraepithelial lesion on cytologic smear of cervix (LGSIL) Category: Medical Plan: Discussed with the patient the pathology results of the colposcopy biopsies & endocervical curettage (negative). Discussed with the patient the sensitivity specificity, positive and negative predictive value in detecting cervical cancer in addition discussed the regression, persistence and progression rates. Recommended co-testing in 12 months, if cytology and or HPV are abnormal will proceed was colposcopy biopsy and endocervical curettage. Instructions given to the patient to schedule a co test appointment in 1 year. All questions answered the patient verbalized understanding. Medications: Refilled alendronate 70 mg PO QWEEK 12 tabs 3RF Coding Level of Care Code Est Pt Level 3 (40362) Diagnoses LGSIL on Pap smear of cervix R87.612
== END 2024-02-18 11:58 | disposition home or self-care (01) ==
LOC: HO.HWS 11:36
PROVIDERS: PCP Internal Medicine; Visit Provider Obstetrics & Gynecology
DX: R87.612 Low grade squamous intraepithelial lesion on cytologic smear of cervix (LGSIL) (principal)
CPT/HCPCS: 99213

== ENCOUNTER → 2024-02-18 11:36 | Outpatient (BNVA) | payer MEDICARE, MEDICAID, SELFPAY | PROVIDERS: PCP Internal Medicine; Visit Provider Obstetrics & Gynecology | DX: R87.612 Low grade squamous intraepithelial lesion on cytologic smear of cervix (LGSIL) (principal) | CPT/HCPCS: 99212 ==

== ENCOUNTER 2025-03-30 08:55 | Outpatient (AMB) | payer MEDICARE, MEDICAID, SELFPAY ==
--- NOTE | 2025-03-30 09:00 | AM.OFFWIN_ITS ---
Intake Vital Signs 03/30/25 09:01 Height 5 ft 2 in Weight 145 lb 8 oz BMI 26.6 BP 112/70 Blood Pressure Location Lt brachial Position Sitting Pulse 84 Pulse Source Pulse Oximeter Temp 97.8 F Temp Source Oral Pulse Oximetry (%) 95 Oxygen Delivery Method Room Air Intake Visit Reasons: ep uti Intake Note: Pt presents to the office today for c/o urinary frequency, burning with urination x3 days. Patient Tobacco Use Status: Former Tobacco user Accompanied by: Nephew or Niece Allergies acetaminophen (From Percocet) Allergy (Unknown, Verified 03/30/25 09:03) Unknown ibuprofen (From Motrin) Allergy (Unknown, Verified 03/30/25 09:03) Nausea and Vomiting, Shaking, Anaphylaxis oxycodone (From Percocet) Allergy (Unknown, Verified 03/30/25 09:03) Unknown HPI HPI Comments History of Present Illness Details History - The patient is a 69-year-old female pr esenting with symptoms suggestive of a urinary tract infection. - Symptoms include urinary frequency and burning sensation during urination, which started two to three days ago. - There is no associated fever, back donald n, or abdominal pain reported. - The patient has not experienced any bl ood in the urine or vaginal discharge. - No recent antibiotic use or history of yeast infections was noted. - The patient attempted self-treatment w ith npjv-xho-ygbvueb medication for yeast infections. - She also bought Azo to take but has no t taken it yet. - She denies fever, chills, chest pain, SOB, abd pain, n/v/d vaginal discharge, vaginal bleeding, or hematuria. Physical Exam General: Cooperative, healthy appearing, comfortable, no acute distress and well developed Cardiac: Normal S1 and S2. RRR, no M/R/G noted. Respiratory: Normal respiratory effort and able to speak in complete sentences. Clear to auscultation bilaterally. No w/r/r noted. Skin: No rashes or lesions noted. GI: Normal inspection. Normal BS noted. Soft, non-tender, non-distended. No TTP of all 4 quadrants. No guarding or rebound tenderness noted. Back: Negative CVA bilaterally Patient was informed and verbally consented to the use of an ambient scribe for clinic note documentation during this visit. [facility] Medical History (Updated 02/18/24 @ 11:49 by Feroz Singh MD) Dysplasia of cervix, low grade (FILOMENA 1) Asthma Hypertension Diabetes Surgical History Tubal ligation status Social History Alcohol intake: former Patient Tobacco Use Status: Former Tobacco user Female Reproductive History Menstrual Age of Menarche: 11 Review of Systems Const All systems reviewed & are unremarkable except as noted in HPI and below Physical Exam Vital Signs: Last Vital Signs Temp 97.8 F 03/30/25 09:01 Pulse 84 03/30/25 09:01 BP 112/70 03/30/25 09:01 Pulse Ox 95 03/30/25 09:01 Oxygen Delivery Method Room Air 03/30/25 09:01 BMI result Body Mass Index 26.6 Assessment & Plan Assessment & Plan (1) Dysuria: Code(s): R30.0 - Dysuria Plan Most likely UTI vs stone vs yeast UA- she was unable to give a urine sample despite multiple attempts plan - The patient is advised to provide a urine sample for urinalysis to confirm the diagnosis of a urinary tract infection. - Lcsy-uhg-nrcewng medication for pain relief was discussed, and the patient was reassured about its safety concerning kidney function. - will treat with antibiotics based on her symptoms and advised her to return if no resolution for a UA and culture - drink lots of fluids - will send urine culture - follow up with PCP Medications: New cefuroxime axetil 500 mg PO Q12H 10 tabs 0RF Coding Level of Care Code Est Pt Level 3 (19856) Diagnoses Dysuria R30.0
[2025-03-30 09:01] VITALS: BP 112/70; PULSE 84; TEMP 36.6; O2SAT 95; BMI 26.6
--- OUTSIDE RECORDS SUMMARY | 2025-03-30 10:08 | XMS_ITS | Clinical Summary ---
Author Organization [employer] Address [address] [place] [address] [address] [address] Care Team Providers Care Medical Billing Service Name Role Phone Unavailable Primary Care Provider Unavailabl e Immunizations Immunization Administration Dates Next Due Hep B, adult 08/06/2017 Influenza High-dose Quadriva lent Preservative Free 05/12/2020 Influenza Quadrivalent Adjuvanted 05/02/2022,10/2020 Influenza injectable quadriv alent preservative free 05/18/2019,05/10/2017,08/20/2016 Influenza, Split (incl. celestino fied surface antigen) 04/14/2013,03/19/2012 Influenza, seasonal, injecta ble, preservative free 03/31/2014 Pfizer Covid-19 Vaccine 12+ 09/17/2023 Pneumococcal Conjugate PCV 13 06/11/2022 Pneumococcal Polysaccharide PPSV23 04/27/2005, TD (adult), 2 Lf tetanus tox oid, preservative free, adsorbed 03/06/2002 Tdap 03/19/2012 Zoster, Recombinant 03/31/2023, 3,05/25/2021,05/25 Social History Tobacco Use Types Packs/Day Years Used Date Smoking Tobacco: Never Assessed Comments Unknown Sex and Gender Information Value Date Recorded Sex Assigned at Female 05/21/2022 10:16 AM EDT Legal Sex Female 10:16 AM EDT Gender Identity Female 05/21/2022 10:16 AM EDT Sexual Orientation Straight 05/21/2022 10 :16 AM EDT Last Filed Vital Signs Vital Sign Reading Time Taken Comments Blood Pressure 120/66 01/26/2021 12:07 AM EDT Pulse 95 01/26/2021 12:07 AM EDT Temperature - - Respiratory Rate - - Oxygen Saturation - - Inhaled Oxygen Concentration - - Weight 53.9 kg (118 lb 12.8 oz) 021 12:07 AM EDT Height 157.5 cm (5' 2 ) 01/26/2021 12:0 7 AM EDT Body Mass Index 21.73 01/26/2021 12:07 AM EDT Plan of Treatment Health Maintenance Due Date Last Done Comments CT Colonography 1954 Colonoscopy 1954 Colorectal Cancer Screening 1954 Depression Screening 1954 FIT DNA/Cologuard 1954 FIT 1954 FOBT 1954 SDOH Screening 1954 Sigmoidoscopy 1954 Alcohol/Substance Use Screening 1966 Tobacco Screening 1966 Hepatitis C Screening 1972 RSV Patients and Patients Aged 60 years or older (1 - Risk 60-74 years 1-dose series) 2014 Hepatitis B Vaccines (2 of 3 - 19+ 3-dose series) 09/03/2017 08/06/2017 Mammogram 11/12/2020 11/12/2018 DTaP/Tdap/Td Vaccines (2 - Td or Tdap) 03/19/2022 03/19/2012, 03/06/2002 COVID-19 Vaccine ( - season) 2025 09/17/2023, 03/12/2022, 10/25/2020, Additional history exists Influenza Vaccine (#1) 2025 , 05/25/2021, 05/12/2020, Additional history exists Lipid Panel 08/29/2025 08/29/2020 Pneumococcal Vaccine: 50+ Years (3 of 3 - PCV20 or PCV21) 06/11/2027 06/11/2022, 04/27/2005, 03/06/2002 Zoster Vaccines Completed 03/31/2023, 03/22, 05/25/2021, Additional history exists HIB Vaccines Aged Out No longer eligi ble based on patient's age to complete this topic HPV Vaccines Aged Out No longer eligi ble based on patient's age to complete this topic Hepatitis A Vaccines Aged Out No long er eligible based on patient's age to complete this topic IPV Vaccines Aged Out No longer eligi ble based on patient's age to complete this topic Meningococcal B Vaccine Aged Out No l onger eligible based on patient's age to complete this topic Meningococcal Vaccine Aged Out No krzysztof jacobo eligible based on patient's age to complete this topic RSV under 20 months Aged Out No longe r eligible based on patient's age to complete this topic Rotavirus Vaccines Aged Out No longer eligible based on patient's age to complete this topic Procedures Procedure Name Priority Date/Time Associated Diagnosis Comments LIPID PANEL, STANDARD Routine 08/29/2020 9:20 AM EST BI MAMMOGRAM SCREENING BILATERAL Routine 11/12/2018 11:47 AM EDT from Last 3 Months or Most Recently Relevant to Health Maintenance Results * (ABNORMAL) LIPID PANEL, STANDARD (08/29/2020 9:20 AM EST) Chol/HDLC Ratio 3.0 <5.0 (calc) [facility] Cholesterol, Total 146 <200 mg/dL [facility] HDL Cholesterol 48(L) > OR = 50 mg/dL [facility] LDL Cholesterol 74 mg/dL (calc) [facility] Comment: Reference range: <100 Desirable range <100 mg/dL for primary prevention; <70 mg/dL for patients with CHD or diabetic patients with > or = 2 CHD risk factors. LDL-C is now calculated using the Kvng-Jha calculation, which is a validated novel method providing better accuracy than the Friedewald equation in the estimation of LDL-C. Kvng SS et al. MICHELLE. 2013;310(19): 5967-2243 (http://education.Ecomsual.com/faq/EMA150) Non-HDL Cholesterol 98 <130 mg/dL (calc) [facility] Comment: For patients with diabetes plus 1 major ASCVD risk factor, treating to a non-HDL-C goal of <100 mg/dL (LDL-C of <70 mg/dL) is considered a therapeutic option. Triglycerides 153(H) <150 mg/dL [facility] 08/29/2020 9:20 AM EST Primo Everett [facility] LAB BLOOD ORDERABLES Final Result [facility] [address] [place] [id number], * DIGITAL BILATERAL SCREEN 1 (11/12/2018 11:47 AM EDT) Anatomical Region Laterality Modality Breast Bilateral Mammography 11/12/2018 11:4 7 AM EDT Narrative 11/12/2018 11:48 AM EDT Refer to the Notes tab for result details [facility] Procedure: DIGITAL BILATERAL SCREEN 1 Procedure Note Provider, MD Jamarcus - 10/13/2022 Refer to the Notes tab for result details [facility] Procedure: DIGITAL BILATERAL SCREEN 1 Amita Renee MD IMG BI PROCEDURES Final Resul t from Last 3 Months or Most Recently Relevant to Health Maintenance [place] [address] [place] [address] STANDARD MEDICARE
--- OUTSIDE RECORDS SUMMARY | 2025-03-30 10:08 | XMS_ITS | Clinical Summary ---
Author Organization [facility] [address] [place] [address] [address] [place] [address] Phone Care Team Providers Care Motor Route Carrier Name Role Phone Sloane Brown MD Primary Care Prov ider Allergies Active Allergy Reactions Criticality Noted Date Comments Ibuprofen Other 10/03/2020 jittery Oxycodone-Acetaminophen Other 10/03/2020 Medications acetaminophen (TYLENOL 8 HOUR) 650 mg 8 hr tablet Take 1 tablet (650 mg total) by mouth 2 (two) times a day. 11/25/19 24 Active alendronate (FOSAMAX) 70 mg tablet Take 70 mg by mouth every 7 days Active diclofenac (VOLTAREN) 1 % topical gel Apply 4 g topically 3 times daily. 09/05/19 24 Active Lantus Solostar U-100 Insulin 100 unit/mL (3 mL) injection pen INJECT 26-28 UNITS INTO THE SKIN AT BEDTIME. 30 mL 2 06/04/20 24 Active dapagliflozin propanediol (FARXIGA) 5 mg tablet 06/04/20 24 Active Ventolin HFA 90 mcg/actuation inhaler INHALE 2 PUFFS INTO THE LUNGS 4 TIMES DAILY NEEDED FOR COUGH OR WHEEZING. 18 each 11 10/10/19 25 Active aspirin 81 mg EC tablet TOME 1 TABLETA POR VIA ORAL TODOS [place] SOFIA 90 tablet 1 10/10/19 25 Active valsartan (DIOVAN) 160 mg tablet Take 1 tablet (160 mg total) by mouth 1 (one) time each day. 90 tablet 1 11/04/19 25 Active dulaglutide (Trulicity) 3 mg/0.5 mL pen injector injectionIndica tions:Type 2 diabetes mellitus with stage 3 chronic kidney disease, with long-term current use of insulin, unspecified whether stage 3a or 3b CKD ([facility] V24, [facility] V28) INYECTE 3 MG INTO THE SKIN MEKA VEZ POR SEMANA 2 mL 5 11/04/19 25 Active pen needle, diabetic (BD Jaycee 2nd Gen Pen Needle) 32 gauge x needleIndicatio ns:Type 2 diabetes mellitus with diabetic chronic kidney disease ([facility] V24, [facility] V28) USE GAGE LO INDICADO CUATRO VECES AL JALIL 400 each 1 11/07/19 25 Active gabapentin (NEURONTIN) 600 mg tablet TOME 1 TABLETA POR VIA ORAL TODOS [place] AL ACOSTARSE 90 tablet 1 12/29/19 25 Active atorvastatin (LIPITOR) 40 mg tablet Take 1 tablet (40 mg total) by mouth at bedtime. 90 tablet 01/06/20 25 Active HumaLOG KwikPen Insulin 100 unit/mL injection pen USE BEFORE EACH MEAL, SLIDING SCALE <70: 0 UNITS, 71-100: 5 UNITS 101-149: 8 UNITS 150-199: 10UNITS 200-249: 12 UNITS 250-299: 14 UNITS 300-349: 16 UNITS 350-400: 18 UNITS GREATER THAN 400, CALL ME. 60 mL 1 02/18/20 25 Active FreeStyle Lancets 28 gauge lancetsIndicati ons:Type 2 diabetes mellitus with stage 4 chronic kidney disease, with long-term current use of insulin ([facility] V24, [facility] V28) Use to check BS daily. E11.22 100 each 03/01/20 25 026 Active blood sugar diagnostic (FreeStyle Lite Strips) test stripIndication s:Type 2 diabetes mellitus with stage 4 chronic kidney disease, with long-term current use of insulin ([facility] V24, [facility] V28) Use to check BS daily. E11.22 100 each 03/01/20 25 026 Active blood sugar diagnostic (Accu-Chek Guide test strips) test stripIndication s:Type 2 diabetes mellitus with stage 4 chronic kidney disease, with long-term current use of insulin ([facility] V24, [facility] V28) Use to check BS daily 100 each 11/12/19 025 Discontinued blood-glucose meter (Accu-Chek Guide Glucose Meter) miscIndications :Type 2 diabetes mellitus with stage 4 chronic kidney disease, with long-term current use of insulin ([facility] V24, [facility] V28) Use to check BS daily 1 each 11/12/19 025 Discontinued lancets lancetsIndicati ons:Type 2 diabetes mellitus with stage 4 chronic kidney disease, with long-term current use of insulin ([facility] V24, [facility] V28) Check blood sugar 1 times a day or as directed 100 each 11/18/19 025 Discontinued Active Problems Problem Noted Date Diagnosed Date Cataracts, bilateral 06/26/2021 Overview (04/25/2024): Cataract surgery both eyes - february 2021 CKD (chronic kidney disease) , stage III ([facility] V24, [facility] V28) 06/26/2021 Assessment & Plan (09/29/2024 12:40 PM EDT): Depression 06/26/2021 Diabetic neuropathy ([facility] V24, [facility] V28) 1 08/27/2020 HLD (hyperlipidemia) 06/26/2021 Assessment & Plan (09/29/2024 12:40 PM EDT): HTN (hypertension) 06/26/2021 Assessment & Plan (09/29/2024 12:40 PM EDT): Osteoporosis 06/26/2021 PVC (premature ventricular contraction) 06/26/20 21 Restrictive lung disease 06/26/2021 Type 2 diabetes mellitus wit h chronic kidney disease ([facility] V24, [facility] V28) 06/26/2021 Assessment & Plan (09/29/2024 12:40 PM EDT): Encounters Date Type Department Care Team Description 03/19/2025 Telephone Endocrinology [address] [phone] Guzman Middleton MD 03/01/2025 11:30 AM EDT Office Visit Adult Medicine [address] [phone] Lizabeth German PA Type 2 diabetes mellitus with stage 4 chronic kidney disease, with long-term current use of insulin (CMS/HCC V24, CMS/HCC V28) (Primary Dx); Primary hypertension; Mixed hyperlipidemia; CKD (chronic kidney disease) stage 4, GFR 15-29 ml/min (CMS/HCC V24, CMS/HCC V28); Overweight (BMI 25.0-29.9); Screening for depression; Encounter for screening involving social determinants of health (SDoH); Encounter for screening mammogram for malignant neoplasm of breast from Last 3 Months Immunizations Name Administration Dates Next Due Hepatitis B (Sljounm-T-Igeqj , Recombivax HB-Adult) 19yo and older 08/06/2017 Influenza trivalent, 0.5mL ( Fluad) 65yo and older 05/06/2024 Influenza trivalent, 0.5mL ( Fluzone High-dose) 65yo and older 05/02/2022,05/25/2021,05/12/2020 Influenza trivalent, 0.5mL, preservative free (Fluarix; FluLaval; Fluzone) ages 6mo and older (Afluria) 3 years and older 03/31/2014 Influenza trivalent, with pr eservative (Fluzone; Afluria) 6mo and older 05/18/2019,05/10/2017,08/20/2016,04/14,03/19/2012 Pneumococcal conjugate 13 va lent (Prevnar 13, PCV13) 2mo and older 06/11/2022 Pneumococcal polysaccharide 23 valent (Pneumovax 23) 2yo and older 04/27/2005,03/06/2002 RSV, bivalent, protein subun it RSVpreF, 0.5mL, Preservative Free (ABRYSVO) 60yo and older or 32 through 36 wks of 05/06/2024 Td Tetanus diptheria (Tdvax) 7yo and older 03/06/2002 Tdap Tetanus diptheria acell ular pertussis (Boostrix; Adacel) 7yo and older 03/19/2012 Zoster recombinant (Shingrix ) 19yo and older 03/31/2023,05/25/2021 Surgical History Surgery Date Site/Laterality Comments CATARACT EXTRACTION Bilateral PROCEDURE: HISTORICAL CATARACT REMOVAL TUBAL LIGATION PROCEDURE: HISTORICAL TUBAL LIGATION COLONOSCOPY 10/12/2021 PROCEDURE: HISTORICAL COLONOSCOPY; COMMENT: inflammatory polyp and diverticulosis Medical History Medical History Date Comments Type 2 diabetes mellitus wit h chronic kidney disease ([facility] V24, [facility] V28) 06/26/2021 DX:Type 2 diabetes mellitus with chronic kidney disease (HCC) CKD (chronic kidney disease) , stage III ([facility] V24, [facility] V28) 06/26/2021 DX:CKD (chronic kidney disease), stage III (HCC) HTN (hypertension) 06/26/2021 DX:HTN (hyper tension) HLD (hyperlipidemia) 06/26/2021 DX:HLD (hyp erlipidemia) Osteoporosis 06/26/2021 DX:Osteoporosis Diabetic neuropathy ([facility] V24, [facility] V28) 06/26/2021 DX:Diabetic neuropathy ([facility]) Cataracts, bilateral 06/26/2021 DX:Cataract s, bilateral 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 DX:Histo ry of Espinoza's palsy Depression 06/26/2021 DX:Depression Restrictive lung disease 06/26/2021 DX:Rest rictive lung disease PVC (premature ventricular contraction) 06/26/2021 DX:PVC (premature ventricula r contraction) Family History Medical History Relation Name Comments Diabetes Father Diabetes Mother Lung cancer Neg Hx Relation Name Status Comments Father Mother Social History Tobacco Use Types Packs/Day Years Used Date Smoking Tobacco: Former Cigarettes 0.5 41 0 07/22/1970 - 07/22/2011 Smokeless Tobacco: Never Tobacco Cessation:Counseling Given: Not Answered Alcohol Use Standard Drinks/Week Comments Not Currently 0 (1 standard drink = 0.6 oz pur e alcohol) Housing Instability Answer Date Recorde d Are you worried that in the next 2 months you may not have stable housing? No 03/01/2025 Food Access & Nutrition Answer Date Rec orded Do you have access to a vari ety of food including fruits and vegetables? Yes 03/01/2025 Health Literacy Answer Date Recorded How often do you need to hav e someone help you when you read instructions, pamphlets, or other written material from your doctor or pharmacy? Never 03/01/2025 Caregiver: How often do you need to have someone help you when you read instructions, pamphlets, or other written material from your doctor or pharmacy? Not on file 03/01/2025 Financial Risk Answer Date Recorded How hard is it for you to pa y for the very basics like food, housing, medical care, and air conditioning / heating? Not very hard 03/01/2025 Transportation Answer Date Recorded Has the lack of transportati on kept you from meetings, work, or from getting things needed for daily living? No Has the lack of transportati on kept you from medical appointments or from getting medications? No 03/01/2025 Social Isolation Answer Date Recorded How often do you feel lonely or isolated from th ose around you? Never 03/01/2025 Food Risk Answer Date Recorded Within the past 12 months we worried whether our food would run out before we got money to buy more. Never true 03/01/2025 Within the past 12 months th e food we bought just didn't last and we didn't have money to get more. Never true 03/01/2025 Dependent Care Answer Date Recorded Do you need help finding or paying for care for your loved ones. For example, child care supervisor or elderly care for an older adult? No 03/01/2025 Education Answer Date Recorded Do you think completing more education or training, like finishing a GED, going to college, or learning a trade, would be helpful for you? No 03/01/2025 Employment and Income Answer Date Recor ded During the last four weeks, have you been actively looking for work? No 03/01/2025 Living Situation Answer Date Recorded What is your living situation? 0 03/01/2025 Comments No Sex and Gender Information Value Date Recorded Sex Assigned at Not on file Legal Sex Female 8:28 AM EST Gender Identity Not on file Sexual Orientation Not on file Obstetrics History Last Filed Vital Signs Vital Sign Reading Time Taken Comments Blood Pressure 120/77 03/01/2025 11:30 AM EDT Pulse 77 03/01/2025 11:30 AM EDT Temperature 36.2 C (97.2 F) 03/01/2025 11:30 AM EDT Respiratory Rate 12 03/01/2025 11:30 AM EDT Oxygen Saturation 98% 03/01/2025 11:30 AM EDT Inhaled Oxygen Concentration - - Weight 66 kg (145 lb 9.6 oz) 03/01/2025 11:30 AM EDT Height 157.5 cm (5' 2 ) 03/01/2025 11:30 AM EDT Body Mass Index 26.63 03/01/2025 11:30 AM EDT Plan of Treatment Upcoming Encounters Date Type Department Care Team (Late st Contact Info) Description 05/07/2025 9:00 AM EDT Office Visit Endocrinology [address] [phone] Guzman Middleton MD [address] [place] [address] 07/26/2025 12:00 PM EST Office Visit Adult Medicine [facility] - [address] [phone] Sloane Brown MD [address] [place] [address] Health Maintenance Due Date Last Done Comments Hepatitis B Vaccines (2 of 3 - 19+ 3-dose series) 09/03/2017 08/06/2017 Medicare Annual Wellness Visit 07/01/2022 Breast Cancer Screening 08/14/2024 08/14/2022, 11/12 Diabetes: Annual Urine Albumin-Creatinine Ratio (uACR) 03/03/2025 03/03/2024 COVID-19 Vaccine ( season) 2025 09/17/2023, 03/12/2022, 10/25/2020, Additional history exists Influenza Vaccine (#1) 2025 , 05/02/2022, 05/25/2021, Additional history exists Diabetes: Blood Sugar Control Test (HGBA1C) 05/05/2025 11/03/2024, 06/04/2024, 03/03/2024, Additional history exists Diabetes: Annual GFR (Glomerular Filtration Rate) 06/04/2025 06/04/2024, 03/03/2024, 03/03/2024 Hypertension/CHF/CAD Annual BMP Blood Test 06/04/2025 06/04/2024, 03/03/2024, 03/03/2024 Lung Cancer Screening (Low Dose CT) 06/15/2025 06/15/2024, 01/12/2023, 12/13/2021 DTaP,Tdap,and Td Vaccines (3 - Td or Tdap) 09/29/2025 03/19/2012, 03/06/2002 Postponed from 03/19/2022 (Patient Refused) Diabetes: Annual Foot Exam 09/29/2025 09/29/2024, Falls Risk Assessment 09/29/2025 09/29/2024, 023 Diabetes: Annual Retina Eye Exam 01/29/2026 01/29/2025 Social Influencers of Health Screening 03/01/2026 03/01/2025 Colorectal Cancer Screening: Colonoscopy 10/12/2026 10/12/2021 Pneumococcal Vaccine: 50+ Years (3 of 3 - PCV20 or PCV21) 06/11/2027 06/11/2022, 04/27/2005, 03/06/2002 Cholesterol Screening (Lipid Panel) 03/03/2029 03/03/2024, 03/03/2024, 08/29/2020 Osteoporosis Screening (Bone Density Screening) 05/26/2034 05/26/2024 Hepatitis C Screening Completed 08/01/2021 Zoster Vaccines Completed 03/31/2023, 05/25/2021 RSV Immunization Adult Patients Completed 05/06/2024 Depression Screening Completed 09/29/2024, 05/16/20 23 HIB Vaccines Aged Out No longer eligi [...] on patient's age to complete this topic MMR Vaccines Aged Out No longer eligi ble based on patient's age to complete this topic Meningococcal ACWY Vaccine Aged Out N o longer eligible based on patient's age to complete this topic Meningococcal B Vaccine Aged Out No l onger eligible based on patient's age to complete this topic RSV Immunization Patients Under 20 months Aged Out No longer eligible based on patient's age to complete this topic Varicella Vaccines Aged Out No longer eligible based on patient's age to complete this topic Procedures Procedure Name Priority Date/Time Associated Diagnosis Comments EXTERNAL DIABETIC RETINA EYE EXAM Routine 01/29/2025 9:13 AM EDT HEMOGLOBIN A1C Routine 11/03/2024 11:25 AM EDT Type 2 diabetes mellitus with stage 3 chronic kidney disease, with long-term current use of insulin, unspecified whether stage 3a or 3b CKD ([facility] V24, [facility] V28) CT LUNG SCREENING Routine 06/15/2024 10: 23 AM EST Encounter for screening for malignant neoplasm of respiratory organs Personal history of nicotine dependence BASIC METABOLIC PANEL Routine 06/04/2024 10:48 AM EST Type 2 diabetes mellitus with stage 3 chronic kidney disease, with long-term current use of insulin, unspecified whether stage 3a or 3b CKD ([facility] V24, CMS/[facility] V28) BD BONE DENSITY DXA AXIAL SKELETON Routine 05/26/2024 11:26 AM EST Screening for osteoporosis URINE ALBUMIN CREATININE RATIO Routine 03/03/2024 LIPID PANEL Routine 03/03/2024 DEPRESSION SCREENING Routine 05/16/2023 FALLS RISK ASSESSMENT Routine 05/16/2023 DIABETES FOOT EXAM Routine 05/16/2023 SCREENING MAMMOGRAPHY BI 2-VIEW BREAST INC CAD Routine 08/14/2022 11:22 AM EST Encounter for screening mammogram for malignant neoplasm of breast COLONOSCOPY Routine 10/12/2021 HEPATITIS C SCREENING Routine 08/01/2021 from Last 3 Months or Most Recently Relevant to Health Maintenance Results * External Diabetic Retina Eye Exam Report (01/29/2025 9:13 AM EDT) Anatomical Region Laterality Modality Ultrasound us Historical Provider MD ANTONY US PROCEDURES Final R esult * (ABNORMAL) Hemoglobin A1c (11/03/2024 11:25 AM EDT) Hemoglobin A1C 8.1(H) <6.5 % LAB CHEMISTRY METHOD 11/03/2024 9:53 PM EDT [facility] Mean Bld Glu Estim. 186 mg/dL LAB CHEMISTRY METHOD 11/03/2024 9:53 PM EDT [facility] Blood Venous blood specimen / Unknown Venipuncture / Unknown 11/03/2024 11:25 AM EDT 11/03/2024 11:25 AM EDT Rani GABRIEL LAB BLOOD ORDERABLES Final Resul t [facility] [address] [place] [address], * CT Lung Screening (06/15/2024 10:23 AM EST) Anatomical Region Laterality Modality Chest Computed Tomogra phy 06/16/2024 4:03 AM EST Impressions 06/16/2024 4:11 AM EST No suspicious pulmonary nodules Lung RADS 2:Benign Appearance or Behavior - Continue annual screening with LDCT in 12 months -------- FINAL REPORT -------- Dictated By: Margot Montiel Dictated Date: 06/16/2024 04:03 ET Assigned Physician: Margot Montiel Reviewed and Electronically Signed By: Margot Montiel Signed Date: 06/16/2024 04:11 ET Workstation ID: [id number] Transcribed By: Self Edit Transcribed Date: 06/16/2024 04:03 ET Narrative 06/16/2024 4:11 AM EST INDICATION: Lung cancer screening, >=20 pk yr smoking history in last 15 yrs (Age 50-80y) Tobacco Abuse; former smoker. TECHNIQUE: Multiple contiguous axial CT images were obtained of the chest without intravenous contrast. Multiplanar reformats were created and interpreted. The CT scanner utilized low- dose iterative reconstruction technique with automatic exposure control based on patient size. DLP: 142.62 mGy-cm COMPARISON: December 2022, November 2021 FINDINGS: Lack of intravenous contrast limits evaluation of the kris, vascular structures and abdominal viscera. LUNGS/PLEURA: Central airways are patent. Atelectasis in the lower lobes especially the superior segment of the right lower lobe. Calcified granulomata. Few scattered sub-5 mm pulmonary nodules, similar to December 2022. MEDIASTINUM: No enlarged mediastinal lymphadenopathy. Thoracic aortic and coronary artery calcifications. 7 mm pericardiac lymph node; similar to prior. MISCELLANEOUS: No axillary adenopathy. UPPER ABDOMEN: Small possible hiatal hernia. Cholelithiasis. Hepatic calcifications. Incompletely imaged low-attenuation lesion in the left adrenal gland which can be partially seen on prior CT from November 2021 and may represent an adrenal adenoma. BONES AND SOFT TISSUES: Degenerative changes Procedure Note Margot Montiel MD - 06/16/2024 INDICATION: Lung cancer screening, >=20 pk yr smoking history in last 15yrs (Age 50-80y) Tobacco Abuse; former smoker. TECHNIQUE: Multiple contiguous axial CT images were obtained of the chestwithout intravenous contrast. Multiplanar reformats were created andinterpreted. The CT scanner utilized low-dose iterative reconstructiontechnique with automatic exposure control based on patient size. DLP: 142.62 mGy-cm COMPARISON: December 2022, November 2021 FINDINGS: Lack of intravenous contrast limits evaluation of the kris,vascular structures and abdominal viscera. LUNGS/PLEURA: Central airways are patent. Atelectasis in the lower lobesespecially the superior segment of the right lower lobe. Calcifiedgranulomata. Few scattered sub-5 mm pulmonary nodules, similar to December2022. MEDIASTINUM: No enlarged mediastinal lymphadenopathy. Thoracic aortic andcoronary artery calcifications. 7 mm pericardiac lymph node; similar toprior. MISCELLANEOUS: No axillary adenopathy. UPPER ABDOMEN: Small possible hiatal hernia. Cholelithiasis. Hepaticcalcifications. Incompletely imaged low-attenuation lesion in the leftadrenal gland which can be partially seen on prior CT from November 2021 andmay represent an adrenal adenoma. BONES AND SOFT TISSUES: Degenerative changes IMPRESSION: No suspicious pulmonary nodules Lung RADS 2:Benign Appearance or Behavior - Continue annual screening withLDCT in 12 months -------- FINAL REPORT -------- Dictated By: Margot Montiel Dictated Date: 06/16/2024 04:03 ET Assigned Physician: Margot Montiel Reviewed and Electronically Signed By: Margot Montiel Signed Date: 06/16/2024 04:11 ET Workstation ID: [id number] Transcribed By: Self Edit Transcribed Date: 06/16/2024 04:03 ET us Donaldo Santos MD IM CT PROCEDURES Final Result * (ABNORMAL) Basic metabolic panel (06/04/2024 10:48 AM EST) Sodium 139 133 - 145 mmol/L LAB CHEMISTRY METHOD 06/04/2024 4:48 PM [facility] Potassium 4.6 3.5 - 5.5 mmol/L LAB CHEMISTRY METHOD 06/04/2024 4:48 PM [facility] Chloride 106 96 - 110 mmol/L LAB CHEMISTRY METHOD 06/04/2024 4:48 PM [facility] CO2 27 21 - 32 mmol/L LAB CHEMISTRY METHOD 06/04/2024 4:48 PM [facility] Anion Gap 6 3 - 11 LAB CHEMISTRY METHOD 06/04/2024 4:48 PM [facility] Glucose 114(H) 70 - 100 mg/dL LAB CHEMISTRY METHOD 06/04/2024 4:48 PM [facility] BUN 34(H) 5 - 25 mg/dL LAB CHEMISTRY METHOD 06/04/2024 4:48 PM [facility] Creatinine 1.91(H) 0.50 - 1.10 mg/dL LAB CHEMISTRY METHOD 06/04/2024 4:48 PM EST [facility] eGFR 28(L) >=60 mL/min/1. 73m2 LAB CHEMISTRY METHOD 06/04/2024 4:48 PM EST [facility] Comment:Calculation based on the Chronic Kidney Disease Epidemiology Collaboration (CKD-EPI) equation refit without adjustment for race. BUN/Creatinine Ratio 17.8 LAB CHEMISTRY METHOD 06/04/2024 4:48 PM EST [facility] Calcium 10.1 8.5 - 10.5 mg/dL LAB CHEMISTRY METHOD 06/04/2024 4:48 PM EST [facility] Blood Venous blood specimen / Unknown Venipuncture / Unknown 06/04/2024 10:48 AM EST 06/04/2024 10:48 AM EST us Rani GABRIEL LAB BLOOD ORDERABLES Final Resul t [facility] [address] [place] [address], * BD Bone Density DXA Axial Skeleton (05/26/2024 11:26 AM EST) Anatomical Region Laterality Modality Wrist, Hip, L-spine Bone Densito metry 05/26/2024 5:16 PM EST Impressions 05/26/2024 5:18 PM EST Osteoporosis by WHO criteria. The [facility] Department of Internal Medicine recommends using National Osteoporosis Foundation (NOF) guidelines in treatment decisions related to osteoporosis. NOF guidelines suggest considering treatment for postmenopausal women and men aged 50 or older presenting with the following: History of hip or vertebral fracture. T-score = -2.5 (DXA) at the femoral neck, total hip, or spine, after appropriate evaluation to exclude secondary causes. Low bone mass (T-score between -1.0 and -2.5 at the femoral neck or spine) AND a 10-year probability of a hip fracture = 3% OR a 10-year probability of a major osteoporosis-related fracture = 20% based on the [place]-adapted WHO algorithm Please note that all treatment decisions require clinical judgment and consideration of individual patient factors, including patient preferences, co-morbidities, previous drug use, risk factors not captured in the FRAX model (e.g., frailty, falls, vitamin D deficiency, increased bone turnover, interval significant decline in bone density) and possible under- or over-estimation of fracture risk by FRAX. Optional alternative screening schedule based on guido Qureshi., [facility] August 09, 2011 for patients with osteopenia (based on hip BMD T-score) is as follows: * advanced osteopenia (T scores -2.00 to -2.49), BMD testing every year * moderate osteopenia (T scores -1.50 to -1.99), BMD testing every 5 years mild osteopenia or normal BMD (T scores -1.50 and higher), BMD testing every 15 years -------- FINAL REPORT -------- Dictated By: Qiana Belle Dictated Date: 05/26/2024 17:16 ET Assigned Physician: Qiana Belle Reviewed and Electronically Signed By: Qiana Belle Signed Date: 05/26/2024 17:18 ET Workstation ID: [id number] Transcribed By: Self Edit Transcribed Date: 05/26/2024 17:16 ET Narrative 05/26/2024 5:18 PM EST BONE DENSITY SCAN (DEXA): FINDINGS: Lumbar Spine T-score is 1.3. (SD relative to 20-29 y/o adult) Z-score is 3.4. (SD relative to age matched peers) This is considered normal by WHO criteria. Left Hip T-score is -3.3. Z-score is -1.4. This is considered osteoporosis by WHO criteria. Comparison exam(s): Not available. Procedure Note Qiana Belle MD - 05/26/2024 BONE DENSITY SCAN (DEXA): FINDINGS: Lumbar Spine T-score is 1.3. (SD relative to 20-29 y/o adult) Z-score is 3.4. (SD relative to age matched peers) This is considered normal by WHO criteria. Left Hip T-score is -3.3. Z-score is -1.4. This is considered osteoporosis by WHO criteria. Comparison exam(s): Not available. IMPRESSION: Osteoporosis by WHO criteria. The [facility] Department of Internal Medicine recommendsusing National Osteoporosis Foundation (NOF) guidelines in treatmentdecisions related to osteoporosis. NOF guidelines suggest consideringtreatment for postmenopausal women and men aged 50 or older presentingwith the following: History of hip or vertebral fracture. T-score = -2.5 (DXA) at the femoral neck, total hip, or spine, afterappropriate evaluation to exclude secondary causes. Low bone mass (T-score between -1.0 and -2.5 at the femoral neck or spine)AND a 10-year probability of a hip fracture = 3% OR a 10-year probabilityof a major osteoporosis-related fracture = 20% based on the [place]-adapted WHOalgorithm Please note that all treatment decisions require clinical judgment andconsideration of individual patient factors, including patientpreferences, co-morbidities, previous drug use, risk factors not capturedin the FRAX model (e.g., frailty, falls, vitamin D deficiency, increasedbone turnover, interval significant decline in bone density) and possibleunder- or over-estimation of fracture risk by FRAX. Optional alternative screening schedule based on guido Qureshi., [facility] for patients with osteopenia (based on hip BMD T-score)is as follows: * advanced osteopenia (T scores -2.00 to -2.49), BMD testing every year * moderate osteopenia (T scores -1.50 to -1.99), BMD testing every 5years mild osteopenia or normal BMD (T scores -1.50 and higher), BMD testingevery 15 years -------- FINAL REPORT -------- Dictated By: Qiana Belle Dictated Date: 05/26/2024 17:16 ET Assigned Physician: Qiana Belle Reviewed and Electronically Signed By: Qiana Belle Signed Date: 05/26/2024 17:18 ET Workstation ID: [id number] Transcribed By: Self Edit Transcribed Date: 05/26/2024 17:16 ET Lizabeth GABRIEL IMG DXA PROCEDURES Final Result * HM Urine Albumin Creatinine Ratio (03/03/2024) Pathologist [facility] Urine Albumin Creatinine Ratio ABSTRACTED [facility] HEALTH MAINTENANCE Final Result * (ABNORMAL) Lipid panel (03/03/2024) [facility] LDL/HDL Ratio 3 0 - 4 Triglycerides 247(A) 0 - 150 mg/dL Cholesterol 148 0 - 200 mg/dL HDL 51 >=40 mg/dL LDL Cholesterol 48 0 - 100 mg/dL Blood Venous blood specimen / Unknown Result [facility] LAB BLOOD ORDERABLES Nupur l Result * Falls Risk Assessment (05/16/2023) [facility] Falls Risk Assessment ABSTRACTED Result [facility]ALTH [facility] Final Result * Depression Screening (05/16/2023) Pathologist [facility] Depression Screening ABSTRACTED Result [facility] Final Result * Diabetes Foot Exam (05/16/2023) [facility] Diabetes: Annual Foot Exam ABSTRACTED Result [facility] Final Result * SCREENING MAMMOGRAPHY BI 2-VIEW BREAST INC CAD (08/14/2022 11:22 AM EST) Anatomical Region Laterality Modality Radiographic Radha ging 03/30/2022 1:00 PM EDT Narrative 08/14/2022 2:55 PM EST This is a summary report. The complete report is available in the patient's medical record. If you cannot access the medical record, please contact the sending organization for a detailed fax or copy. Full field digital screening 2D and 3D mammography, reviewed with CAD and compared to previous mammograms of 11/11/2018 and 12/13/2020. The breasts are composed of fatty and fibroglandular tissue. No suspicious mass, architectural distortion or suspicious calcifications are identified. IMPRESSION: : No mammographic evidence of malignancy. BIRADS 1-Negative; N. 5 year breast cancer risk assessment 0.9 % Lifetime breast cancer risk assessment 3.2 % Breast cancer risk category Low (<15%) Procedure Note Sailaja Cruz MD - 08/27/2023 This is a summary report. The complete report is available in thepatient's medical record. If you cannot access the medical record, pleasecontact the sending organization for a detailed fax or copy. Full field digital screening 2D and 3D mammography, reviewed with CAD andcompared to previous mammograms of 11/11/2018 and 12/13/2020. The breastsare composed of fatty and fibroglandular tissue. No suspicious mass,architectural distortion or suspicious calcifications are identified. IMPRESSION: : No mammographic evidence of malignancy. BIRADS 1-Negative; N. 5 year breast cancer risk assessment 0.9 % Lifetime breast cancer risk assessment 3.2 % Breast cancer risk category Low (<15%) us Chelsea Kwesi GABRIEL IMG XR PROCEDURES Final Result * Colonoscopy (10/12/2021) Colonoscopy NO INTERPRETATION , ABSTRACTED Anatomical Region Laterality Modality Other Historical Provider HEALTH MAINTENANCE Final Result * Hepatitis C Screening (08/01/2021) Hepatitis C Screening ABSTRACTED Historical Provider HEALTH MAINTENANCE Final Result from Last 3 Months or Most Recently Relevant to Health Maintenance Insurance MEDICAID - [place] [employer] MEDICARE Care Teams Motor Route Carrier Relationship Specialty Start Date End Date Sloane Brown MD [address] [place] [phone] PCP - General Internal Medicine 09/04/24
--- OUTSIDE RECORDS SUMMARY | 2025-03-30 10:08 | XMS_ITS | Encounter Summary ---
Author Organization [facility] Address [address] [place] [address] Care Team Providers Care Tanker Service Attendant Name Role Phone Sloane Brown MD Primary Care Prov ider Reason for Visit * Reason Onset Date Comments Medication Problem 03/19/2025 Encounter Details Date Type Department Care Team ([facility] st Contact Info) Description 03/19/2025 Telephone Endocrinology - [place] [address] [place], [place] [phone] Guzman Middleton MD [address] [place] [address] Social History Tobacco Use Types Packs/Day Years Used Date Smoking Tobacco: Former Cigarettes 0.5 41 0 07/22/1970 - 07/22/2011 Smokeless Tobacco: Never Alcohol Use Standard Drinks/Week Comments Not Currently [...] for your loved ones. For example, child development director or elderly care for an older adult? [...] on file Sexual Orientation Not on file documented as of this encounter Progress Notes * Olivia Rodarte RN - 03/23/2025 2:27 PM EDT Please enter max dose for Humalog and resend to the pharmacy * Ani Waters - 03/19/2025 3:34 PM EDT Medication Problem: What is the name of the medication patient is having a problem with?: Humalog 100unit kwik pen What is the problem?: script clarification missing max dose [facility] is [facility] about the problem? : [facility] Who prescribed this medication for the patient? Dr Middleton Who is patients PCP?: Sloane Dejesus MD Payor: [employer] MEDICARE / Plan: [facility] COMPLETE SNP DUAL / Product Type: *No Product type* / documented in this encounter Plan of Treatment Upcoming Encounters Date Type Department Care Team (Late st Contact Info) Description 05/07/2025 9:00 AM EDT Office Visit Endocrinology [address] [phone] Guzman Middleton MD [address] [place] [phone] 07/26/2025 12:00 PM EST Office Visit Adult Medicine [address] [phone] Sloane Brown MD [address] [place] [address] documented as of this encounter Visit Diagnoses Not on filedocumented in this encounter Additional Health Concerns Assessment Noted Time PHQ-9 Depression Total Score: 0 09/30/19 25 12:19 PM EDT documented as of this encounter Care Teams Tanker Service Attendant Relationship Specialty Start Date End Date Sloane Brown MD [address] [place] [address] PCP - General Internal Medicine 09/04/24 documented as of this encounter
== END 2025-03-30 10:01 | disposition home or self-care (01) ==
PROVIDERS: PCP Internal Medicine; Visit Provider Physician Assistant Medical
DX: R30.0 Dysuria (principal)

== ENCOUNTER → 2025-03-30 08:55 | Outpatient (BNVA) | payer OTHER, SELFPAY | PROVIDERS: PCP Internal Medicine | DX: R30.0 Dysuria (principal) | CPT/HCPCS: 99212 ==

== ENCOUNTER 2025-05-04 12:33 | Outpatient (REF) | payer OTHER, SELFPAY | END 2025-05-04 12:34 | disposition home or self-care (01) | LOC: HO.LNP 12:33 | PROVIDERS: PCP Internal Medicine | DX: I12.9 Hypertensive chronic kidney disease with stage 1 through stage 4 chronic kidney disease, or unspecified chronic kidney disease (principal); N18.4 Chronic kidney disease, stage 4 (severe); N30.00 Acute cystitis without hematuria; Z79.899 Other long term (current) drug therapy | CPT/HCPCS: 87086 ==

== ENCOUNTER 2025-05-04 12:33 | Outpatient (AMB) | payer OTHER, SELFPAY ==
[2025-05-04 12:55] VITALS: BP 120/72; PULSE 81; O2SAT 97; BMI 26.5
--- NOTE | 2025-05-04 12:55 | MHC.OFFWIV ---
Intake Vital Signs 05/04/25 12:55 Height 5 ft 2 in Weight 145 lb BMI 26.5 BP 120/72 Blood Pressure Location Rt brachial Position Sitting Pulse 81 Pulse Source Pulse Oximeter Pulse Oximetry (%) 97 Intake Visit Reasons: EP-UTI Patient Tobacco Use Status: Former Tobacco user Allergies acetaminophen (From Percocet) Allergy (Unknown, Verified 05/04/25 12:55) Unknown ibuprofen (From Motrin) Allergy (Unknown, Verified 05/04/25 12:55) Nausea and Vomiting, Shaking, Anaphylaxis oxycodone (From Percocet) Allergy (Unknown, Verified 05/04/25 12:55) Unknown Medication List - Last Reconciled 05/04/25 by Amrik Bailon MD albuterol sulfate 90 mcg/actuation inhalation alendronate 70 mg PO QWEEK aspirin 81 mg PO DAILY atorvastatin mg PO blood pressure test kit-large As directed blood sugar diagnostic (Accu-Chek Guide test strips) As directed chlorthalidone 12.5 mg PO ONCE dapagliflozin propanediol (Farxiga) 5 mg PO DAILY dulaglutide (Trulicity) 3 mg subcut QWEEK gabapentin 300 mg PO BID insulin glargine (Lantus Solostar U-100 Insulin) 26 - 28 units subcut BEDTIME insulin lispro (Humalog KwikPen (U-100) Insulin) subcut lancets (Accu-Chek Softclix Lancets) As directed losartan 100 mg PO DAILY pen needle, diabetic (BD Jaycee 2nd Gen Pen Needle) As directed valsartan 160 mg PO DAILY Do you need a note to return to daycare/school/sports/work: No HPI EP-UTI HPI Details History of Present Illness The patient is a 69-year-old female presenting with dysuria, urinary frequency, and hematuria. Dysuria: - Described as a burning sensation upon urination. - Symptoms started on Saturday before the day of conversation. - No associated back pain and no vomiting. - Patient took Azo which changed urine color. Urinary Frequency: - Described as having a constant urge to urinate starting since Saturday. Hematuria: - 3+ blood noted in initial urinalysis. Medical History: - Stage 4 Chronic Kidney Disease with GFR 29, creatinine 1.72. Medications: - Azo taken by the patient for symptomatic relief. Diagnostic Results: - Urinalysis showing 3+ leukocytes and 3+ blood. Problem List - Dysuria - Urinary frequency - Hematuria - Stage 4 Chronic Kidney Disease Plan - Initiated treatment with moxifloxacin 400 mg once daily for 7 days due to urinary tract infection indicated by dysuria, frequency, and laboratory findings. - Urine culture ordered to identify the causative organism and ensure appropriate antibiotic coverage; will adjust antibiotic if necessary based on culture results. - Advise increased oral hydration to help flush the urinary system, reducing bacterial load and alleviating symptoms of bladder irritation. - Monitoring of kidney function is essential due to stage 4 chronic kidney disease, moxifloxacin deemed safe for use with renal impairment but requires close monitoring. - Consideration for potential adjustment of medication based on patient's renal function and response to treatment. Review of Systems - General: No fever no chills - Neurological: No headaches no dizziness - Ear nose throat: No sore throat no hearing difficulty no ear pain - Cardiovascular: No syncope, no chest pain, no palpitations - Gastrointestinal: No nausea vomiting or diarrhea Physical Exam - General: No acute distress - HEENT: No acute findings - Neck: Supple - Respiratory system: Able to talk in full sentences, no audible wheeze - back no CVAT - Gastrointestinal: No pain - Extremities: No new findings - INSURANCE SERVICE REPRESENTATIVE: Alert awake oriented x3 motor intact - Skin: Normal turgor PFSH Medical History Dysplasia of cervix, low grade (FILOMENA 1) Asthma Hypertension Diabetes Surgical History Tubal ligation status Social History Alcohol intake: former Patient Tobacco Use Status: Former Tobacco user Female Reproductive History Menstrual Age of Menarche: 11 Physical Exam Vital Signs: Last Vital Signs Pulse 81 05/04/25 12:55 BP 120/72 05/04/25 12:55 Pulse Ox 97 05/04/25 12:55 BMI result Body Mass Index 26.5 Results AMB Urinalysis, Automated UA Leukoctes 500 Lacy/uL Last Edit by Magdaleno Rodarte CMA on 05/04/25 14:12 UA Nitrite Positive Last Edit by Magdaleno Rodarte CMA on 05/04/25 14:12 UA Urobilinogen 8 mg/dL Last Edit by Magdaleno Rodarte CMA on 05/04/25 14:12 UA Protein 300 mg/dL Last Edit by Magdaleno Rodarte CMA on 05/04/25 14:12 UA pH 6.0 Last Edit by Magdaleno Rodarte CMA on 05/04/25 14:12 UA Blood 200 Octavio/uL Last Edit by Magdaleno Rodarte CMA on 05/04/25 14:12 UA Specific [place] 1.020 Last Edit by Magdaleno Rodarte CMA on 05/04/25 14:12 UA Ketone Positive Last Edit by Magdaleno Rodarte CMA on 05/04/25 14:12 UA Bilirubin 4 mg/dL Last Edit by Magdaleno Rodarte CMA on 05/04/25 14:12 UA Glucose 500 mg/dL Last Edit by Magdaleno Rodarte CMA on 05/04/25 14:12 Results Reviewed Results Reviewed: Laboratory Last Values Urine pH (Auto) 6.0 05/04/25 12:55 Specific [place] (Auto) 1.020 05/04/25 12:55 Urine Protein (Auto) 300 mg/dL 05/04/25 12:55 Glucose (UA)(Auto) 500 mg/dL 05/04/25 12:55 Urine Ketones (Auto) Positive 05/04/25 12:55 Urine Blood (Auto) 200 Octavio/uL 05/04/25 12:55 Urine Nitrite (Auto) Positive 05/04/25 12:55 Urine Bilirubin (Auto) 4 mg/dL 05/04/25 12:55 Urine Urobilinogen (Auto) 8 mg/dL 05/04/25 12:55 Leukocyte Esterase (Auto) 500 Lacy/uL 05/04/25 12:55 Assessment & Plan Assessment & Plan (1) Acute cystitis without hematuria: Code(s): N30.00 - Acute cystitis without hematuria (2) Kidney disease, chronic, stage IV (GFR 15-29 ml/min): Code(s): N18.4 - Chronic kidney disease, stage 4 (severe) Plan Dysuria: - Described as a burning sensation upon urination. - Symptoms started on Saturday before the day of conversation. - No associated back pain and no vomiting. - Patient took Azo which changed urine color. Urinary Frequency: - Described as having a constant urge to urinate starting since Saturday. Hematuria: - 3+ blood noted in initial urinalysis. Medical History: - Stage 4 Chronic Kidney Disease with GFR 29, creatinine 1.72. Medications: - Azo taken by the patient for symptomatic relief. Diagnostic Results: - Urinalysis showing 3+ leukocytes and 3+ blood. Problem List - Dysuria - Urinary frequency - Hematuria - Stage 4 Chronic Kidney Disease Plan - Initiated treatment with moxifloxacin 400 mg once daily for 7 days due to urinary tract infection indicated by dysuria, frequency, and laboratory findings. - Urine culture ordered to identify the causative organism and ensure appropriate antibiotic coverage; will adjust antibiotic if necessary based on culture results. - Advise increased oral hydration to help flush the urinary system, reducing bacterial load and alleviating symptoms of bladder irritation. - Monitoring of kidney function is essential due to stage 4 chronic kidney disease, moxifloxacin deemed safe for use with renal impairment but requires close monitoring. - Consideration for potential adjustment of medication based on patient's renal function and response to treatment. Orders: Orders AMB Urinalysis Automated Today Ivy Lynch PA-C Z13.9 - Encounter for screening, unspecified Urine Culture Today Amrik Bailon MD N30.00 - Acute cystitis without hematuria Medications: New moxifloxacin 400 mg PO DAILY 7 tabs 0RF 7 days Amrik Bailon MD Coding Level of Care Code Est Pt Level 3 (26255) Diagnoses Acute cystitis without hematuria N30.00 Kidney disease, chronic, stage IV (GFR 15-29 ml/min) N18.4
--- OUTSIDE RECORDS SUMMARY | 2025-05-04 15:12 | XMS_ITS | Encounter Summary ---
Author Organization [facility] Address [address] [place] [address] Care Team Providers Care Framework Developer Name Role Phone Sloane Brown MD Primary Care Prov ider Reason for Visit * Reason Onset Date Comments Appointment 05/04/2025 1st Notification Encounter Details Date Type Department Care Team ([facility] st Contact Info) Description 05/04/2025 Telephone Lung Screening Program - [address] [place] [phone] Norma Bowles MA Social History Tobacco Use Types Packs/Day Years [...] for your loved ones. For example, child and family services specialist or elderly care for an older adult? [...] Date Recorded What is your living situation? Unrecognized valu e 03/01/2025 Comments No Sex and Gender Information Value Date Recorded Sex Assigned at Not on file Legal Sex Female 8:28 AM EST Gender Identity Not on file Sexual Orientation Not on file documented as of this encounter Progress Notes * Norma Bowles MA - 05/04/2025 2:49 PM EDT Vita Montelongo was contacted by the Lung Cancer Screening Program today to confirm the appointment of their Lung Cancer Screening. The patient is currently scheduled to have their screening on Saturday May 24, 2025, at 530 PM at [facility]. Patient reschedule for 06/01/2025 at 1045 AM. For all screenings scheduled during the week, the patient will check in at Patient Registration on the first floor of the main hospital. For screenings that take place on the weekend or after 5pm, check-in directly in Radiology. The patient was given the Lung Cancer Screening Program phone number, , to contact if they have any additional questions, concerns or need to reschedule. Patients are encouraged to call our office and reschedule if they are exhibiting any cold-like symptoms, have recently been treated for Pneumonia or Influenza (the flu) or have had another CT of their Chest since their last screening. documented in this encounter Plan of Treatment Upcoming Encounters Date Type Department Care Team (Late st Contact Info) Description 05/07/2025 9:00 AM EDT Office Visit [address] [phone] Guzman Middleton MD [address] [place] [address] 06/01/2025 10:45 AM EST Appointment [facility] CT Scan [address] [place] [address] 07/26/2025 12:00 PM EST Office Visit Adult Medicine [address] [phone] Sloane Brown MD [address] [place] [address] documented as of this encounter Visit Diagnoses Not on filedocumented in this encounter Additional Health Concerns Assessment Noted Time PHQ-9 Depression Total Score: 0 09/30/19 12:19 PM EDT documented as of this encounter Care Teams Framework Developer Relationship Specialty Start Date End Date Sloane Brown MD [address] [place] [address] PCP - General Internal Medicine 09/04/24 documented as of this encounter
--- OUTSIDE RECORDS SUMMARY | 2025-05-04 15:12 | XMS_ITS | Clinical Summary ---
Author Organization [facility] [address] [place] [address] Address [address] [place] [address] Phone Care Team Providers Care Strip Roller Name Role Phone Sloane Brown MD Primary [...] unspecified whether stage 3a or 3b CKD ([facility] V24, [facility] V28) INYECTE 3 MG INTO THE SKIN MEKA VEZ POR SEMANA 2 mL 5 11/04/19 25 Active pen needle, diabetic (BD Jaycee 2nd Gen Pen Needle) 32 gauge x needleIndicatio ns:Type 2 diabetes mellitus with diabetic chronic kidney disease ([facility] V24, [facility] V28) USE GAGE LO INDICADO CUATRO VECES AL JALIL 400 each 1 11/07/19 25 Active gabapentin (NEURONTIN) 600 mg tablet TOME 1 TABLETA POR VIA ORAL TODOS [place] AL ACOSTARSE 90 tablet 1 12/29/19 25 Active HumaLOG KwikPen Insulin 100 unit/mL [...] disease, with long-term current use of insulin ([facility] V24, [facility] V28) Use to check BS daily. E11.22 100 each 03/01/20 25 026 Active lancets lancets Check blood sugar four times a day or as directed 3 each 04/09/20 25 026 Active atorvastatin (LIPITOR) 40 mg tablet Take 1 tablet (40 mg total) by mouth at bedtime. 30 tablet 04/22/20 25 Active blood sugar diagnostic (FreeStyle Lite Strips) test stripIndication s:Type 2 diabetes mellitus with stage 4 chronic kidney disease, with long-term current use of insulin ([facility] V24, [facility] V28) USE TO TEST DAILY 100 strip 12 05/03/20 25 Active atorvastatin (LIPITOR) 40 mg tablet Take 1 tablet (40 mg total) by mouth at bedtime. 90 tablet 01/06/20 25 025 Discontinued blood sugar diagnostic (FreeStyle Lite Strips) test stripIndication s:Type 2 diabetes mellitus with stage 4 chronic kidney disease, with long-term current use of insulin ([facility] V24, [facility] V28) Use to check BS daily. E11.22 100 each 03/01/20 25 025 Discontinued glucose blood test strip Check blood sugar four times a day or as directed 100 each 04/09/20 025 Discontinued(Fo rmulary change) Active Problems Problem Noted Date Diagnosed Date Cataracts, bilateral 06/26/2021 Overview (04/25/2024): Cataract surgery both eyes - february 2021 CKD (chronic kidney disease) , stage III ([facility] V24, [facility] V28) 06/26/2021 Assessment & Plan (09/29/2024 12:40 PM EDT): Depression 06/26/2021 Diabetic neuropathy ([facility] V24, [facility] V28) 1 08/27/2020 HLD (hyperlipidemia) 06/26/2021 Assessment & Plan (09/29/2024 12:40 PM EDT): HTN (hypertension) 06/26/2021 Assessment & Plan (09/29/2024 12:40 PM EDT): Osteoporosis 06/26/2021 PVC (premature ventricular contraction) 06/26/20 21 Restrictive lung disease 06/26/2021 Type 2 diabetes mellitus wit h chronic kidney disease ([facility] V24, [facility] V28) 06/26/2021 Assessment & Plan (09/29/2024 12:40 PM EDT): Encounters Date Type Department Care Team Description 05/04/2025 Telephone Lung Screening Program - [place] [address] [facility] [address] [place] [address] Norma Bowles MA 03/19/2025 Telephone Endocrinology - [address] [phone] Guzman Middleton MD 03/01/2025 11:30 AM EDT Office Visit Adult Medicine [address] [phone] Lizabeth German PA Type 2 diabetes mellitus [...] of breast from Last 3 Months Immunizations Immunization Administration Dates Next Due Hepatitis B (Pmxtsjj-U-Usict , Recombivax HB-Adult) 19yo and older 08/06/2017 [...] subun it RSVpreF, 0.5mL, Preservative Free (ABRYSVO) 50yo and older or 32 through 36 wks [...] diabetes mellitus wit h chronic kidney disease ([facility] V24, [facility] V28) 06/26/2021 DX:Type 2 diabetes mellitus with chronic kidney disease (HCC) CKD (chronic kidney disease) , stage III ([facility] V24, [facility] V28) 06/26/2021 DX:CKD (chronic kidney disease), stage III (HCC) HTN (hypertension) 06/26/2021 DX:HTN (hyper tension) HLD (hyperlipidemia) 06/26/2021 DX:HLD (hyp erlipidemia) Osteoporosis 06/26/2021 DX:Osteoporosis Diabetic neuropathy ([facility] V24, [facility] V28) 06/26/2021 DX:Diabetic neuropathy ([facility]) Cataracts, bilateral 06/26/2021 DX:Cataract s, bilateral History [...] care for your loved ones. For example, children librarian or elderly care for an older adult? [...] 05/07/2025 9:00 AM EDT Office Visit Endocrinology [facility] [address] [place], [place] [phone] Guzman Middleton MD [address] [place] [address] 06/01/2025 10:45 AM EST Appointment [facility] CT Scan [address] [place] [phone] 07/26/2025 12:00 PM EST Office Visit Adult Medicine [address] [phone] Sloane Brown MD [address] [place] [address] Health Maintenance Due Date Last Done Comments [...] unspecified whether stage 3a or 3b CKD ([facility] V24, [facility] V28) CT LUNG SCREENING Routine 06/15/2024 10: 23 AM EST Encounter for screening for malignant neoplasm of respiratory organs Personal history of nicotine dependence BASIC METABOLIC PANEL Routine 06/04/2024 10:48 AM EST Type 2 diabetes mellitus with stage 3 chronic kidney disease, with long-term current use of insulin, unspecified whether stage 3a or 3b CKD ([facility] V24, [facility] V28) BD BONE DENSITY DXA AXIAL SKELETON [...] LAB CHEMISTRY METHOD 11/03/2024 9:53 PM EDT [facility] Mean Bld Glu Estim. 186 mg/dL LAB CHEMISTRY METHOD 11/03/2024 9:53 PM EDT [facility] Blood Venous blood specimen / Unknown Venipuncture / Unknown 11/03/2024 11:25 AM EDT 11/03/2024 11:25 AM EDT Rani GABRIEL LAB BLOOD ORDERABLES Final Resul t [facility] [address] [place] [address], * CT Lung Screening (06/15/2024 10:23 AM [...] Signed Date: 06/16/2024 04:11 ET Workstation ID: [id number] Transcribed By: Self Edit Transcribed Date: 06/16/2024 [...] Signed Date: 06/16/2024 04:11 ET Workstation ID: [id number] Transcribed By: Self Edit Transcribed Date: 06/16/2024 04:03 ET Donaldo Santos MD IM CT PROCEDURES Final Result * (ABNORMAL) Basic metabolic panel (06/04/2024 10:48 AM EST) Sodium 139 133 - 145 mmol/L LAB CHEMISTRY METHOD 06/04/2024 4:48 PM [facility] Potassium 4.6 3.5 - 5.5 mmol/L LAB CHEMISTRY METHOD 06/04/2024 4:48 PM [facility] Chloride 106 96 - 110 mmol/L LAB CHEMISTRY METHOD 06/04/2024 4:48 PM [facility] CO2 27 21 - 32 mmol/L LAB CHEMISTRY METHOD 06/04/2024 4:48 PM [facility] Anion Gap 6 3 - 11 LAB CHEMISTRY METHOD 06/04/2024 4:48 PM [facility] Glucose 114(H) 70 - 100 mg/dL LAB CHEMISTRY METHOD 06/04/2024 4:48 PM [facility] BUN 34(H) 5 - 25 mg/dL LAB CHEMISTRY METHOD 06/04/2024 4:48 PM EST [facility] Creatinine 1.91(H) 0.50 - 1.10 mg/dL LAB CHEMISTRY METHOD 06/04/2024 4:48 PM EST [facility] eGFR 28(L) >=60 mL/min/1. 73m2 LAB CHEMISTRY METHOD 06/04/2024 4:48 PM EST [facility] Comment:Calculation based on the Chronic Kidney Disease Epidemiology Collaboration (CKD-EPI) equation refit without adjustment for race. BUN/Creatinine Ratio 17.8 LAB CHEMISTRY METHOD 06/04/2024 4:48 PM EST [facility] Calcium 10.1 8.5 - 10.5 mg/dL LAB CHEMISTRY METHOD 06/04/2024 4:48 PM EST [facility] Blood Venous blood specimen / Unknown Venipuncture / Unknown 06/04/2024 10:48 AM EST 06/04/2024 10:48 AM EST us Rani GABRIEL LAB BLOOD ORDERABLES Final Resul t [facility] [address] [place] [address], * BD Bone Density DXA Axial Skeleton (05/26/2024 11:26 AM EST) Anatomical Region Laterality Modality Wrist, Hip, L-spine Bone Densito metry 05/26/2024 5:16 PM EST Impressions 05/26/2024 5:18 PM EST Osteoporosis by WHO criteria. [facility] Department of Internal Medicine recommends using [...] alternative screening schedule based on guido Qureshi., [facility] August 09, 2011 for patients with osteopenia [...] Signed Date: 05/26/2024 17:18 ET Workstation ID: [id number] Transcribed By: Self Edit Transcribed Date: 05/26/2024 [...] available. IMPRESSION: Osteoporosis by WHO criteria. [facility] Department of Internal Medicine recommendsusing National [...] alternative screening schedule based on guido Qureshi., NEJJanuary 2011 for patients with osteopenia (based on [...] Signed Date: 05/26/2024 17:18 ET Workstation ID: [id number] Transcribed By: Self Edit Transcribed Date: 05/26/2024 17:[address] [facility] Lizabeth GABRIEL IMG DXA PROCEDURES Final Result * Urine Albumin Creatinine Ratio (03/03/2024) Pathologist [facility] Urine Albumin Creatinine Ratio ABSTRACTED Result [facility] Provider MD HEALTH MAINTENANCE Final Result * (ABNORMAL) Lipid panel (03/03/2024) [facility] LDL/HDL Ratio 3 0 - 4 Triglycerides 247(A) 0 - 150 mg/dL Cholesterol 148 0 - 200 mg/dL HDL 51 >=40 mg/dL LDL Cholesterol 48 0 - 100 mg/dL Blood Venous blood specimen / Unknown Result [facility] LAB BLOOD ORDERABLES Nupur l Result * Falls Risk Assessment (05/16/2023) Pathologist [facility] Falls Risk Assessment ABSTRACTED Result [facility] Provider HEALTH MAINTENANCE Final Result * Depression Screening (05/16/2023) Pathologist [facility] Depression Screening ABSTRACTED Result [facility] Provider HEALTH MAINTENANCE Final Result * Diabetes Foot Exam (05/16/2023) Pathologist [facility] Diabetes: Annual Foot Exam ABSTRACTED Result [facility] Provider HEALTH MAINTENANCE Final Result * SCREENING MAMMOGRAPHY BI 2-VIEW [...] Relevant to Health Maintenance Insurance [place] [employer] MEDICARE Care Teams Strip Roller Relationship Specialty Start Date End Date Sloane Brown MD [address] [place] [phone] PCP - General Internal Medicine 09/04/24
--- OUTSIDE RECORDS SUMMARY | 2025-05-04 15:12 | XMS_ITS | Clinical Summary ---
Author Organization [employer] Address [address] [place] [address] [address] [place] [address] Care Team Providers Care Maintenance Mechanic Helper Name Role Phone Unavailable Primary Care Provider [...] LDL-C. Kvng SS et al. MICHELLE. 2013;310(19): 7648-4787 (http://education.Instamedia.com/faq/WOE455) Non-HDL Cholesterol 98 <130 mg/dL (calc) [facility] Comment: For patients with diabetes plus 1 major ASCVD risk factor, treating to a non-HDL-C goal of <100 mg/dL (LDL-C of <70 mg/dL) is considered a therapeutic option. Triglycerides 153(H) <150 mg/dL [facility] 08/29/2020 9:20 AM EST Primo Everett [facility] LAB BLOOD ORDERABLES Final Result [facility] [address] [place] [id number], * DIGITAL BILATERAL SCREEN 1 (11/12/2018 11:47 [...] Most Recently Relevant to Health Maintenance [place] [address] [place] [address] STANDARD MEDICARE
--- OUTSIDE RECORDS SUMMARY | 2025-05-04 15:12 | XMS_ITS | Clinical Summary ---
Author Organization [facility] Address [address] [facility] [address] [place] [address] Phone Care Team Providers Care Zipper Machine Operator Name Role Phone Sloane Mary MD Primary Care Provider + Allergies Active Allergy Reactions Criticality Noted Date Comments Ibuprofen Other (see comments) 10/03/2020 Oxycodone-Acetaminophen Other (see comments) Medications aspirin (ST TIFFANY) 81 MG EC tablet Take 1 tablet by mouth 1 (one) time each day Active Dulaglutide (Trulicity) 1.5 MG/0.5ML solution pen-injectorIndi cations:Stage 3a chronic kidney disease (HCC),Renal disorder due to type 2 diabetes mellitus <Unspecified DM Medication; Diabetic nephropathy> ([facility]),Persistent proteinuria Inject under the skin Active gabapentin (NEURONTIN) 400 MG capsule 400 mg 05/06/2021 Active atorvastatin (LIPITOR) 40 MG tablet 03/30/2021 Active alendronate (FOSAMAX) 70 MG tablet 03/15/2021 Active Basaglar KwikPen 100 UNIT/ML injection 12/04/2021 Active valsartan (DIOVAN) 320 MG tablet TAKE 1 TABLET BY MOUTH EVERY DAY 90 tablet 1 04/02/2022 Active insulin aspart protamine-insuli n aspart (NovoLOG 70/30) (70-30) 100 UNIT/ML injection Inject 22 Units under the skin in the morning. Active Farxiga 5 MG tablet TOME 1 TABLETA POR VIA ORAL TODOS [place] SOFIA 90 tablet 3 10/08/2024 Active chlorthalidone 25 MG tabletIndication s:Renal disorder due to type 2 diabetes mellitus <Unspecified DM Medication; Diabetic nephropathy> (HCC),Persistent proteinuria,Stag e 3a chronic kidney disease (HCC) TAKE 1/2 TABLET BY MOUTH 1 TIME EACH DAY. 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 Hyperlipidemia 06/26/2021 Hypertensive disorder 06/26/2021 Multiple premature ventricular complexes 021 Neuropathy due to diabetes mellitus 06/26/2021 Osteoporosis 06/26/2021 Restrictive lung disease 06/26/2021 Type 2 diabetes mellitus 06/26/2021 Stage 3b chronic kidney disease 05/17/2021 Benign hypertensive renal disease 10/03/2020 Proteinuria 10/03/2020 Renal disorder due to type 2 diabetes mellitus 0 10/03/2020 Stage 3a chronic kidney disease 10/03/2020 Resolved Problems Problem Noted Date Diagnosed Date Resolved Date Chronic kidney disease stage 3 10/03/2020 03/13/2021 Encounters Date Type Department Care Team Description 03/25/2025 3:30 PM EDT Office Visit [facility] [address] [place] [address] Juan Daniel Navas MD Stage 3b chronic kidney disease (HCC) (Primary Dx); Renal disorder due to type 2 diabetes mellitus <Diabetic nephropathy> (HCC) from Last 3 Months Immunizations Immunization Administration Dates Next Due Hepatitis B 08/06/2017 Influenza (IM) Preservative Free 03/31/2014 Influenza Split High Dose Pr eservative Free IM 05/02/2022,05/25/2021,05/12/2020 Influenza, Unspecified 05/12/2020,2018,05/10/2017,08/20,04/14/2013,03/19/2012 Moderna SARS-COV-2 03/12/2022,10/25/2020, 021 Pneumococcal Conjugate 13-Valent 06/11/2022 Pneumococcal Polysaccharide 04/27/2005, 2 Shingrix 03/31/2023,05/25/2021 Td 03/06/2002 Tdap 03/19/2012 Family History Medical History Relation Comments Heart disease Father Heart disease Mother Diabetes Sibling 1 Kidney disease Sibling 2 brother and sist er Relation Status Comments Father Mother Sibling 1 Sibling 2 Social History Tobacco Use Types Packs/Day Years Used Date Smoking Tobacco: Former Smokeless Tobacco: Never Tobacco Cessation:Counseling Given: Not Answered Comments:Smoking History Info:Every day Alcohol Use Standard Drinks/Week Comments No 0 (1 standard drink = 0.6 oz pur e alcohol) Comments Unknown Sex and Gender Information Value Date Recorded Sex Assigned at Not on file Legal Sex Female 5:06 PM EST Gender Identity Not on file Sexual Orientation Not on file Last Filed Vital Signs Vital Sign Reading Time Taken Comments Blood Pressure 112/64 03/25/2025 3:10 PM EDT Pulse 77 03/25/2025 3:10 PM EDT Temperature - - Respiratory Rate - - Oxygen Saturation 97% 03/25/2025 3:10 PM EDT Inhaled Oxygen Concentration - - Weight 67.4 kg (148 lb 9.6 oz) 03/25/2025 3:10 P M EDT Height 162.6 cm (5' 4 ) 03/09/2019 12:00 PM EDT Body Mass Index 25.51 03/09/2019 12:00 PM EDT Plan of Treatment Upcoming Encounters Date Type Department Care Team (Late st Contact Info) Description 04/04/2026 1:00 PM EDT Office Visit [facility] [address] [place] [address] [place] [phone] Juan Daniel Navas MD [address] [facility] [address] [place] [address] Health Maintenance Due Date Last Done Comments Breast Cancer Screening 1955 Colorectal Cancer Screening: Annual FOBT 09/29/2003 Colorectal Cancer Screening: Colonoscopy 09/29/2003 Colorectal Cancer Screening: Sigmoidoscopy 09/29/2003 Diabetes: Ophthalmology Exam 08/21/2020 Diabetes: Pedal Pulse Checked 08/21/2020 Diabetes: Sensory Foot Exam 08/21/2020 Diabetes: Visual Foot Exam 08/21/2020 Diabetes: Hemoglobin A1C 02/02/2025 025, 06/04/2024, 08/27/2023, Additional history exists Influenza Vaccine (#1) 2025 4, 05/02/2022, 05/25/2021, Additional history exists Pneumococcal Vaccine: 50+ Years (4 of 4 - PCV20 or PCV21) 06/11/2027 06/11/2022, 04/27/2005, 03/06/2002 Hepatitis B Vaccine Aged Out 08/06/2017 No longe r eligible based on patient's age to complete this topic Pneumococcal Vaccine: Peds (0 to 5 Years) and At-Risk Patients (6 to 49 Years) Discontinued 06/11/2022, 04/27/2005, 03/06/2002 Procedures Procedure Name Priority Date/Time Associated Diagnosis Comments ALT EXT LABS Routine 02/12/2025 from Last 3 Months Results * (ABNORMAL) ALT EXT LABS (02/12/2025) WBC 6.2 3.3 - 10.0 10*3/ML Red Blood Cell Count 4.54 Hemoglobin 13.2 12.0 - 16.0 Hematocrit 41.5 36.0 - 46.0 Platelets 158 150 - 399 10*3/UL BUN 27(A) 4 - 21 mg/dL Creatinine 1.61(A) 0.50 - 1.10 mg/dL Calcium 9.2 8.7 - 10.7 mg/dL Sodium 138 137 - 147 Potassium 4.2 3.4 - 5.5 Chloride 103.0 99.0 - 108.0 Bicarbonate (CO2) 23 22 - 30 mmol/L eGFR Non-Afr Montenegrin 34 02/12/2025 us Historical Provider LAB BLOOD ORDERABLES Nupur blankenship Result from Last 3 Months Insurance [place] [facility] ([id number]) Care Teams Zipper Machine Operator Relationship Specialty Start Date End Date Sloane Mary MD [address] [place] [phone] PCP - General 12/12/22
--- OUTSIDE RECORDS SUMMARY | 2025-05-04 15:12 | XMS_ITS | Encounter Summary ---
Author Organization [facility] [address] [facility] [address] [place] [address] Phone Care Team Providers Care Information Technology Associate Name Role Phone Sloane Mary MD Primary Care Provider + Reason for Visit * Reason Comments Med Refill Encounter Details Date Type Department Care Team (Late Contact Info) Description 03/19/2022 Refill [facility] [address] [place] [address] Juan Daniel Navas MD [address] [facility] [address] [place] [address] Stage 3a chronic kidney disease (HCC); Renal disorder due to type 2 diabetes mellitus <Diabetic nephropathy> (HCC); Persistent proteinuria Social History Tobacco Use Types Packs/Day Years Used Date Smoking Tobacco: Former Smokeless Tobacco: Never Comments:Smoking History Inf o:Every day Alcohol Use Standard Drinks/Week Comments No 0 (1 standard drink = 0.6 oz pur e alcohol) Comments Unknown Sex and Gender Information Value Date Recorded Sex Assigned at Not on file Legal Sex Female 5:06 PM EST Gender Identity Not on file Sexual Orientation Not on file documented as of this encounter Plan of Treatment Upcoming Encounters Date Type Department Care Team ([facility] Contact Info) Description 04/04/2026 1:00 PM EDT Office Visit [facility] [address] [place] [address] Juan Daniel Navas MD [address] [facility] [address] [place] [address] documented as of this encounter Visit Diagnoses Diagnosis Stage 3a chronic kidney disease (HCC) Renal disorder due to type 2 diabetes mellitus <Unspecified DM Medication; Diabetic nephropathy> (HCC) Persistent proteinuria documented in this encounter Care Teams Information Technology Associate Relationship Specialty Start Date End Date Sloane Mary MD [address] [place] [phone] PCP - General 12/12/22 documented as of this encounter
== END 2025-05-04 13:23 | disposition home or self-care (01) ==
PROVIDERS: PCP Internal Medicine; Visit Provider Internal Medicine
DX: N30.00 Acute cystitis without hematuria (principal); N18.4 Chronic kidney disease, stage 4 (severe); Z13.9 Encounter for screening, unspecified

== ENCOUNTER 2025-05-17 11:44 | Outpatient (AMB) | payer OTHER, SELFPAY ==
--- NOTE | 2025-05-17 11:45 | A.OFFVIS_ITS ---
Vital Signs 05/17/25 11:49 Height 5 ft 2 in Weight 144 lb BMI 26.3 BP 114/66 Intake Visit Reasons: Annual Allergies acetaminophen (From Percocet) Allergy (Unknown, Verified 05/04/25 12:55) Unknown ibuprofen (From Motrin) Allergy (Unknown, Verified 05/04/25 12:55) Nausea and Vomiting, Shaking, Anaphylaxis oxycodone (From Percocet) Allergy (Unknown, Verified 05/04/25 12:55) Unknown HPI Comments Details: Presenting for annual exam. No complaints. Last Pap/HPV was LSIL HPV negative, colpo biopsy ECC negative Last Mammogram was BI-RADS 1 in 12/09, the patient is schedule for next screening mammogram in 07/15 Last Colonoscopy in 2021, the recommendation was to repeat in 5 years according to the patient, no records available Last DEXA scan was in 12/11 [facility] Medical History Dysplasia of cervix, low grade (FILOMENA 1) Asthma Hypertension Diabetes Surgical History Tubal ligation status Family History Father Diabetes Mother Diabetes Social History Household Members: None Housing: Apartment Alcohol intake: former Patient Tobacco Use Status: Former Tobacco user Years Smoked: 25 Current occupational status: disabled Sexually active: Yes Sexual orientation: Straight/Heterosexual Gender identity: Female Female Reproductive History Menstrual Age of Menarche: 11 Total pregnancies: 3 Full term: 3 Number of Living Children: 3 Date of last pap smear: 11/08/23 Date of Mammogram: 12/13/20 Review of Systems Const All systems reviewed & are unremarkable except as noted in HPI and below Card Reports as per HPI Resp Reports as per HPI GI Reports as per HPI and Reports no additional complaints Reports as per HPI Physical Exam Vital Signs: Last Vital Signs BP 114/66 05/17/25 11:49 BMI result Body Mass Index 26.3 Const General: cooperative, healthy appearing and comfortable Chest Chest palpation & inspection: normal inspection of the chest and normal palpation of entire chest wall Breast/axilla inspection: normal inspection of the breasts and normal inspection of the axillae Breast/axilla palpation: normal palpation of the breasts, normal palpation of the axillae and no axillary lymphadenopathy Resp Effort & Inspection: normal respiratory effort Auscultation: clear to auscultation bilaterally Percussion: percussion normal Cardio Palpation: normal PMI Rate: regular rate Rhythm: regular rhythm Heart sounds: no murmurs and no rubs Peripheral pulses: Peripheral pulses 2+ throughout GI Inspection: Yes normal to inspection Palpation (GI): Soft to palpation, nontender, no guarding, not rigid and No hepatosplenomegaly present Percussion: Yes normal to percussion Auscultation: normal bowel sounds Rectal Exam - Female: deferred General: Yes bladder normal to palpation External Female Exam: No lesion Speculum Exam - Vagina: normal appearance of the vagina, normal palpation, normal vaginal discharge and not erythematous Speculum Exam - Cervix: normal appearance of the cervix and normal palpation Bimanual exam- vagina & uterus: normal bimanual exam, normal palpation, uterine size normal, bladder normal to palpation, consistency normal and normal palpation Bimanual Exam- Adnexa, other: normal adnexae, no masses and no tenderness Assessment & Plan Assessment & Plan (1) Well woman exam: Comment: FILOMENA 1 since 2020 status post LEEP in 2022 Code(s): Z01.419 - Encounter for gynecological examination (general) (routine) without abnormal findings Category: Medical Plan: Co testing done Counseled the patient about the recommended dietary allowance of 1200 mg of Calcium & 800 IU of vitamin D. Mammogram schedule in 07/15. Will order DEXA scan . The patient was instructed to perform monthly self-breast exams and to schedule a 2 week DEXA scan follow-up appointment and an annual exam in a year; All questions answered and the patient verbalized understanding. Orders: Orders XR DEXA axial skeleton Today Z78.0 - Asymptomatic menopausal state MM tomosynthesis screening BI Today Z12.31 - Encounter for screening mammogram for malignant neoplasm of breast Coding Level of Care Code Est Pt Prev Care >65y(22135) Diagnoses Well woman exam Z01.419
[2025-05-17 11:49] VITALS: BP 114/66; BMI 26.3
--- OUTSIDE RECORDS SUMMARY | 2025-05-17 15:10 | XMS_ITS | Clinical Summary ---
Author Organization [employer] Address [address] [place] [address] [address] [place] [address] Care Team Providers Care Tab Cutting Machine Operator Name Role Phone Unavailable Primary Care Provider [...] LDL-C. Kvng SS et al. MICHELLE. 2013;310(19): 1205-6335 (http://education.AppFirst.com/faq/[email or web address]) Non-HDL Cholesterol 98 <130 mg/dL (calc) [facility] Comment: For patients with diabetes plus 1 major ASCVD risk factor, treating to a non-HDL-C goal of <100 mg/dL (LDL-C of <70 mg/dL) is considered a therapeutic option. Triglycerides 153(H) <150 mg/dL [facility] 08/29/2020 9:20 AM EST Primo Everett [facility] BLOOD ORDERABLES Final Result [facility] [address] [place] [id number], * DIGITAL BILATERAL SCREEN 1 (11/12/2018 11:47 [...] Most Recently Relevant to Health Maintenance [place] [address] [place] [address] STANDARD MEDICARE
--- OUTSIDE RECORDS SUMMARY | 2025-05-17 15:10 | XMS_ITS | Clinical Summary ---
Author Organization [facility] [address] [place] [address] Address [address] [place] [address] Phone Care Team Providers Care It Compliance Analyst Name Role Phone Sloane Brown MD Primary [...] unspecified whether stage 3a or 3b CKD ([facility] V24, [facility] V28) INYECTE 3 MG INTO THE SKIN MEKA VEZ POR SEMANA 2 mL 5 11/04/19 25 Active pen needle, diabetic (BD Jaycee 2nd Gen Pen Needle) 32 gauge x needleIndicatio ns:Type 2 diabetes mellitus with diabetic chronic kidney disease ([facility] V24, [facility] V28) USE GAGE LO INDICADO CUATRO VECES [...] ME. 60 mL 1 02/18/20 25 Active blood sugar diagnostic (FreeStyle Lite Strips) test stripIndication s:Type 2 diabetes mellitus with stage 4 chronic kidney disease, with long-term current use of insulin ([facility] V24, [facility] V28) USE TO 4 TIMES DAILY 200 strip 5 05/07/20 25 Active FreeStyle Lancets 28 gauge lancetsIndicati ons:Type 2 diabetes mellitus with stage 4 chronic kidney disease, with long-term current use of insulin ([facility] V24, [facility] V28) Use to check BS daily. E11.22 200 each 5 05/07/20 25 026 Active atorvastatin (LIPITOR) 40 mg tablet Take 1 tablet (40 mg total) by mouth at bedtime. 90 tablet 05/17/20 25 Active atorvastatin (LIPITOR) 40 mg tablet Take 1 tablet (40 mg total) by mouth at bedtime. 90 tablet 01/06/20 25 025 Discontinued FreeStyle Lancets 28 gauge lancetsIndicati ons:Type 2 diabetes mellitus with stage 4 chronic kidney disease, with long-term current use of insulin ([facility] V24, [facility] V28) Use to check BS daily. E11.22 100 each 12 03/01/20 25 025 Discontinued(Re order) blood sugar diagnostic (FreeStyle Lite Strips) test stripIndication s:Type 2 diabetes mellitus with stage 4 chronic kidney disease, with long-term current use of insulin ([facility] V24, [facility] V28) Use to check BS daily. E11.22 100 each 12 03/01/20 25 025 Discontinued lancets lancets Check blood sugar four times a day or as directed 3 each 04/09/20 25 025 Discontinued(Fo rmulary change) glucose blood test strip Check blood sugar four times a day or as directed 100 each 04/09/20 25 025 Discontinued(Fo rmulary change) atorvastatin (LIPITOR) 40 mg tablet Take 1 tablet (40 mg total) by mouth at bedtime. 30 tablet 04/22/20 25 025 Discontinued blood sugar diagnostic (FreeStyle Lite Strips) test stripIndication s:Type 2 diabetes mellitus with stage 4 chronic kidney disease, with long-term current use of insulin ([facility] V24, [facility] V28) USE TO TEST DAILY 100 strip 05/03/20 25 025 Discontinued(Re order) Active Problems Problem Noted Date Diagnosed Date Cataracts, bilateral 06/26/2021 Overview (04/25/2024): Cataract surgery both eyes - february 2021 CKD (chronic kidney disease) , stage III ([facility] V24, [facility] V28) 06/26/2021 Assessment & Plan (09/29/2024 12:40 PM EDT): Depression 06/26/2021 Diabetic neuropathy ([facility] V24, [facility] V28) 1 08/27/2020 HLD (hyperlipidemia) 06/26/2021 Assessment & Plan (09/29/2024 12:40 PM EDT): HTN (hypertension) 06/26/2021 Assessment & Plan (09/29/2024 12:40 PM EDT): Osteoporosis 06/26/2021 PVC (premature ventricular contraction) 06/26/20 Restrictive lung disease 06/26/2021 Type 2 diabetes mellitus wit h chronic kidney disease ([facility] V24, [facility] V28) 06/26/2021 Assessment & Plan (09/29/2024 12:40 PM EDT): Encounters Date Type Department Care Team Description 05/11/2025 Telephone [address]ocr[address] [phone] Guzman Middleton MD 05/07/2025 9:00 AM EDT Office Visit [address] [phone] Guzman Middleton MD Type 2 diabetes mellitus with stage 4 chronic kidney disease, with long-term current use of insulin ([facility] V24, [facility] V28) 05/04/2025 Telephone Lung Screening Program - [address] [phone] Norma Bowles [place] 03/19/2025 Telephone Endocrinology [address] [phone] Guzman Middleton MD 03/01/2025 11:30 AM EDT Office Visit Adult Medicine [facility] - [address] [phone] Lizabeth German PA Type 2 diabetes mellitus with stage 4 chronic kidney disease, with long-term current use of insulin ([facility] V24, [facility] V28) (Primary Dx); Primary hypertension; Mixed hyperlipidemia; CKD (chronic kidney disease) stage 4, GFR 15-29 ml/min ([facility] V24, [facility] V28); Overweight (BMI 25.0-29.9); Screening for depression; Encounter for screening involving social determinants of health (SDoH); Encounter for screening mammogram for malignant neoplasm of breast from Last 3 Months Immunizations Immunization Administration Dates Next Due Hepatitis B (Dwthuup-Y-Chfjk , Recombivax HB-Adult) 19yo and older 08/06/2017 [...] diabetes mellitus wit h chronic kidney disease ([facility] V24, [facility] V28) 06/26/2021 DX:Type 2 diabetes mellitus with chronic kidney disease (HCC) CKD (chronic kidney disease) , stage III (CMS/HCC V24, CMS/HCC V28) 06/26/2021 DX:CKD (chronic kidney disease), stage III (HCC) HTN (hypertension) 06/26/2021 DX:HTN (hyper tension) HLD (hyperlipidemia) 06/26/2021 DX:HLD (hyp erlipidemia) Osteoporosis 06/26/2021 DX:Osteoporosis Diabetic neuropathy (CMS/HCC V24, CMS/HCC V28) 06/26/2021 DX:Diabetic neuropathy (HCC) Cataracts, bilateral 06/26/2021 DX:Cataract s, bilateral History [...] care for your loved ones. For example, children's court magistrate or elderly care for an older adult? [...] Sign Reading Time Taken Comments Blood Pressure 119/73 05/07/2025 9:10 AM EDT Pulse 82 05/07/2025 9:10 AM EDT Temperature 36.2 C (97.2 F) 03/01/2025 11:30 AM EDT Respiratory Rate 14 05/07/2025 9:10 AM EDT Oxygen Saturation 98% 03/01/2025 11:30 AM EDT Inhaled Oxygen Concentration - - Weight 68 kg (150 lb) 05/07/2025 9:10 AM EDT Height 157.5 cm (5' 2 ) 05/07/2025 9:10 AM EDT Body Mass Index 27.44 05/07/2025 9:10 AM EDT Plan of Treatment Upcoming Encounters Date Type Department Care Team (Late st Contact Info) Description 06/01/2025 10:45 AM EST Appointment [facility] CT Scan [address] [place] [address] 06/01/2025 1:30 PM EST Office Visit Endocrinology - [address] [phone] Rani Reilly PA [address] [place], [place] 07/26/2025 12:00 PM EST Office Visit Adult Medicine [facility] [address] [place] [address] Sloane Brown MD [address] [place] [address] Health Maintenance Due Date Last Done Comments [...] unspecified whether stage 3a or 3b CKD ([facility] V24, [facility] V28) CT LUNG SCREENING Routine 06/15/2024 10: 23 AM EST Encounter for screening for malignant neoplasm of respiratory organs Personal history of nicotine dependence BASIC METABOLIC PANEL Routine 06/04/2024 10:48 AM EST Type 2 diabetes mellitus with stage 3 chronic kidney disease, with long-term current use of insulin, unspecified whether stage 3a or 3b CKD ([facility] V24, [facility] V28) BD BONE DENSITY DXA AXIAL SKELETON [...] LAB CHEMISTRY METHOD 11/03/2024 9:53 PM EDT [facility] Mean Bld Glu Estim. 186 mg/dL LAB CHEMISTRY METHOD 11/03/2024 9:53 PM EDT [facility] Blood Venous blood specimen / Unknown Venipuncture / Unknown 11/03/2024 11:25 AM EDT 11/03/2024 11:25 AM EDT us Rani GABRIEL LAB BLOOD ORDERABLES Final Resul t [facility] [address] [place] [address], [place] [phone] * CT Lung Screening (06/15/2024 10:23 AM [...] Signed Date: 06/16/2024 04:11 ET Workstation ID: [id number] Transcribed By: Self Edit Transcribed Date: 06/16/2024 [...] Signed Date: 06/16/2024 04:11 ET Workstation ID: [id number] Transcribed By: Self Edit Transcribed Date: 06/16/2024 04:03 ET Donaldo Santos MD [facility] CT PROCEDURES Final Result * (ABNORMAL) Basic metabolic panel (06/04/2024 10:48 AM EST) Sodium 139 133 - 145 mmol/L LAB CHEMISTRY METHOD 06/04/2024 4:48 PM [facility] Potassium 4.6 3.5 - 5.5 mmol/L LAB CHEMISTRY METHOD 06/04/2024 4:48 PM [facility] Chloride 106 96 - 110 mmol/L LAB CHEMISTRY METHOD 06/04/2024 4:48 PM [facility] CO2 27 21 - 32 mmol/L LAB CHEMISTRY METHOD 06/04/2024 4:48 PM [facility] Anion Gap 6 3 - 11 LAB CHEMISTRY METHOD 06/04/2024 4:48 PM [facility] Glucose 114(H) 70 - 100 mg/dL LAB CHEMISTRY METHOD 06/04/2024 4:48 PM [facility] BUN 34(H) 5 - 25 mg/dL LAB CHEMISTRY METHOD 06/04/2024 4:48 PM [facility] Creatinine 1.91(H) 0.50 - 1.10 mg/dL LAB CHEMISTRY METHOD 06/04/2024 4:48 PM [facility] eGFR 28(L) >=60 mL/min/1. 73m2 LAB CHEMISTRY METHOD 06/04/2024 4:48 PM [facility] Comment:Calculation based on the Chronic Kidney Disease Epidemiology Collaboration (CKD-EPI) equation refit without adjustment for race. BUN/Creatinine Ratio 17.8 LAB CHEMISTRY METHOD 06/04/2024 4:48 PM [facility] Calcium 10.1 8.5 - 10.5 mg/dL LAB CHEMISTRY METHOD 06/04/2024 4:48 PM EST [facility] Blood Venous blood specimen / Unknown Venipuncture / Unknown 06/04/2024 10:48 AM EST 06/04/2024 10:48 AM EST us Rani GABRIEL LAB BLOOD ORDERABLES Final Resul t [facility] [address] [place] [address], * BD Bone Density DXA Axial Skeleton (05/26/2024 11:26 AM EST) Anatomical Region Laterality Modality Wrist, Hip, L-spine Bone Densito metry 05/26/2024 5:16 PM EST Impressions 05/26/2024 5:18 PM EST Osteoporosis by WHO criteria. The [facility] Department of Internal Medicine recommends using National [...] alternative screening schedule based on guido Qureshi., [facility] August 09, 2011 for patients with [...] Signed Date: 05/26/2024 17:18 ET Workstation ID: [id number] Transcribed By: Self Edit Transcribed Date: 05/26/2024 [...] available. IMPRESSION: Osteoporosis by WHO criteria. The [facility] Department of Internal Medicine recommendsusing National Osteoporosis [...] alternative screening schedule based on guido Qureshi., [facility] for patients with osteopenia (based [...] Signed Date: 05/26/2024 17:18 ET Workstation ID: [id number] Transcribed By: Self Edit Transcribed Date: 05/26/2024 17:16 ET Lizabeth GABRIEL IMG DXA PROCEDURES Final Result * Urine Albumin Creatinine Ratio (03/03/2024) [facility] Urine Albumin Creatinine Ratio ABSTRACTED Historical Provider HEALTH MAINTENANCE Final Result * (ABNORMAL) Lipid panel (03/03/2024) [facility] LDL/HDL Ratio 3 0 - 4 Triglycerides 247(A) 0 - 150 mg/dL Cholesterol 148 0 - 200 mg/dL HDL 51 >=40 mg/dL LDL Cholesterol 48 0 - 100 mg/dL Blood Venous blood specimen / Unknown Historical Provider LAB BLOOD ORDERABLES Nupur l Result * Falls Risk Assessment (05/16/2023) Pathologist [facility] Falls Risk Assessment ABSTRACTED Result [facility] Historical Provider HEALTH MAINTENANCE Final Result * Depression Screening (05/16/2023) Pathologist [facility] Depression Screening ABSTRACTED Historical Provider HEALTH MAINTENANCE Final Result * Diabetes Foot Exam (05/16/2023) Pathologist [facility] Diabetes: Annual Foot Exam ABSTRACTED Historical Provider HEALTH MAINTENANCE Final Result * SCREENING [...] cancer risk category Low (<15%) us Chelsea GABRIEL IMG XR PROCEDURES Final Result * Colonoscopy (10/12/2021) Colonoscopy NO INTERPRETATION , ABSTRACTED Anatomical Region Laterality Modality Other Historical Provider HEALTH MAINTENANCE Final Result * Hepatitis C Screening (08/01/2021) Hepatitis C Screening ABSTRACTED Historical Provider HEALTH MAINTENANCE Final Result from Last 3 Months or Most Recently Relevant to Health Maintenance Insurance MEDICAID - [place] [employer] MEDICARE Care Teams It Compliance Analyst Relationship Specialty Start Date End Date Sloane Brown MD [address] [place] [address] PCP - General Internal Medicine 09/04/24
--- OUTSIDE RECORDS SUMMARY | 2025-05-17 15:10 | XMS_ITS | Encounter Summary ---
Author Organization [facility] [address] [facility] [address] [place] [address] Phone Care Team Providers Care Mallet Cutter Name Role Phone Sloane Mary MD Primary Care Provider + Reason for Visit * Reason Comments Med Refill Encounter Details Date Type Department Care Team (Late Contact Info) Description 03/19/2022 Refill [facility] [address] [place] [address] Juan Daniel Navas MD [address] [facility] [address] [place] [address] Stage 3a chronic kidney disease [...] Upcoming Encounters Date Type Department Care Team ([facility] Contact Info) Description 04/04/2026 1:00 PM EDT Office Visit [facility] [address] [place] [address] Juan Daniel Navas MD [address] [facility] [address] [place] [address] documented as of this encounter Visit Diagnoses Diagnosis Stage 3a chronic kidney disease (HCC) Renal disorder due to type 2 diabetes mellitus <Unspecified DM Medication; Diabetic nephropathy> (HCC) Persistent proteinuria documented in this encounter Care Teams Mallet Cutter Relationship Specialty Start Date End Date Sloane Mary MD [address] [place] [phone] PCP - General 12/12/22 documented as of this encounter
--- OUTSIDE RECORDS SUMMARY | 2025-05-17 15:10 | XMS_ITS | Encounter Summary ---
Author Organization [facility] Address [address] [place] [address] Care Team Providers Care Field Project Manager Name Role Phone Sloane Brown MD Primary Care Prov ider Reason for Visit * Reason Onset Date Comments Medication Problem 05/11/2025 Encounter Details Date Type Department Care Team ([facility] st Contact Info) Description 05/11/2025 Telephone Endocrinology - [place] [address] [place], [place] [phone] Guzman Middleton MD [address] [place] [address] Social History Tobacco Use Types Packs/Day Years [...] your loved ones. For example, child care centre manager or elderly care for an older adult? [...] as of this encounter Progress Notes * Sunshine Melton MA - 05/12/2025 3:23 PM EDT FREESTYLE AISHA LITE meter and test strip are denied for not meeting the prior authorization requirement(s). Product authorization requires t * Sunshine Melton MA - 05/12/2025 1:26 PM EDT Electronic PA requested * Ani Waters - 05/12/2025 12:09 PM EDT Endocrine Call Primary endocrine provider: Dr. Guzman Middleton MD Is the endocrine provider in the office toady?: no Who is calling? The patient. If not the patient or parent/guardian please check for authorization to share/verbal release. Why is the person calling? Prior authorization. Medications or glucose meter supplies. Please routeto prior authorization pool (p [phone]). Which supply is the concern? FREESTYLE LITE TEST STRIPS CMM CODE: NONE * Fara Ortiz MA - 05/11/2025 9:52 AM EDT Spoke with Shani who is going to call the insurance and find out what is covered by insurance and then call us back. * Lissa Gustafson - 05/11/2025 9:44 AM EDT Endocrine Call Primary endocrine provider: Dr. Guzman Middleton MD Is the endocrine provider in the office toady?: yes Who is calling? [facility]. If not the patient or parent/guardian please check for authorization to share/verbal release. Why is the person calling? Other question/concern: FREESTYLE LITE TEST STRIPS NOT COVERED. Please forward to endocrine pool (p [phone]). documented in this encounter Plan of Treatment Upcoming Encounters Date Type Department Care Team (Late st Contact Info) Description 06/01/2025 10:45 AM EST Appointment [facility] CT Scan [address] [place] [address] 06/01/2025 1:30 PM EST Office Visit Endocrinology - [address] [phone] Rani Reilly PA [address] [place] [address] 07/26/2025 12:00 PM EST Office Visit Adult Medicine [address] [phone] Sloane Brown MD [address] [place] [address] documented as of this encounter Visit Diagnoses Not on filedocumented in this encounter Additional Health Concerns Assessment Noted Time PHQ-9 Depression Total Score: 0 09/30/19 12:19 PM EDT documented as of this encounter Care Teams Field Project Manager Relationship Specialty Start Date End Date Sloane Brown MD [address] [place] [address] PCP - General Internal Medicine 09/04/24 documented as of this encounter
--- OUTSIDE RECORDS SUMMARY | 2025-05-17 15:11 | XMS_ITS | Clinical Summary ---
Author Organization [facility] Address [address] [place] [address] Phone Care Team Providers Care X Ray Operator Name Role Phone Sloane Mary MD [...] diabetes mellitus <Unspecified DM Medication; Diabetic nephropathy> ([facility]),Persistent proteinuria Inject under the skin Active gabapentin [...] Visit [facility] [address] [place] [address] Juan Daniel Navas MD Stage 3b chronic [...] Visit [facility] [address] [place] [address] [place] [address] Juan Daniel Navas MD [address] [place] [address] Health Maintenance Due Date Last Done Comments Breast Cancer Screening 1955 Colorectal Cancer Screening: Annual FOBT 09/29/2003 Colorectal Cancer Screening: Colonoscopy 09/29/2003 Colorectal Cancer Screening: Sigmoidoscopy 09/29/2003 Diabetes: Ophthalmology Exam 08/21/2020 Diabetes: Pedal Pulse Checked 08/21/2020 Diabetes: Sensory Foot Exam 08/21/2020 Diabetes: Visual Foot Exam 08/21/2020 Diabetes: Hemoglobin A1C 02/02/2025 025, 11/03/2024, 06/04/2024, Additional history exists Influenza Vaccine (#1) 2025 [...] to 49 Years) Discontinued 06/11/2022, 04/27/2005, 03/06/2002 Insurance [place] [facility] ([id number]) Care Teams X Ray Operator Relationship Specialty Start Date End Date Sloane Mary MD [address] [place] [phone] PCP - General 12/12/22
== END 2025-05-17 12:26 | disposition home or self-care (01) ==
LOC: HO.HWS 11:45
PROVIDERS: PCP Internal Medicine; Visit Provider Obstetrics & Gynecology
DX: Z01.419 Encounter for gynecological examination (general) (routine) without abnormal findings (principal)
CPT/HCPCS: 99397; 99459

== ENCOUNTER 2025-05-17 11:44 | Outpatient (REF) | payer OTHER, SELFPAY | END 2025-05-17 11:45 | disposition home or self-care (01) | LOC: HO.LNP 11:44 | PROVIDERS: PCP Internal Medicine; Visit Provider Obstetrics & Gynecology | DX: Z01.419 Encounter for gynecological examination (general) (routine) without abnormal findings (principal); Z78.0 Asymptomatic menopausal state; Z12.31 Encounter for screening mammogram for malignant neoplasm of breast; Z98.51 Tubal ligation status | CPT/HCPCS: 87626; 88175; 99397 ==